=== PATIENT | female | born 1955 | race Caucasian/White ===

== ENCOUNTER 2018-11-25 07:17 | Day surgery (SDC) | payer OTHER ==
[2018-11-25] MEDS: TETRACAINE HCL 0.5% 4ML OPTH OPTH ONE ×2 (07:10→09:10)
--- OUTSIDE RECORDS SUMMARY | 2018-11-25 07:20 | XMS REPORT | Clinical Summary ---
:1955 Author Organization [facility] Address [address] [place] [address] Care Team Providers Name Role Phone Ana Maria Lucio MD Primary Care Provider Allergies No Known Allergies Medications Medication Sig Dispensed Refills Start Date End Date Status escitalopram (LEXAPRO) 10 TK 1 T PO D 2 10/05/2017 Active MG tablet RESTASIS 0.05 % ophthalmic INT 1 GTT IN 10 08/09/2017 Active emulsion OU BID TRAVATAN Z 0.004 % INT 1 GTT IN 1 08/25/2017 Active OU HS lamoTRIgine (LaMICtal) 200 TK 1 AND 1/2 T 2 10/04/2017 Active MG tablet PO QD multivitamin (THERAGRAN) Take 1 tablet 0 Active tablet by mouth daily. ARIPiprazole (ABILIFY) 5 Take 5 mg by 0 Active MG tablet mouth daily. aspirin (ECOTRIN) 81 MG Take 81 mg by 0 Active enteric coated tablet mouth daily. docusate sodium (COLACE) Take by mouth 0 Active 50 MG capsule daily. cholecalciferol, vitamin Take 5,000 0 Active D3, (VITAMIN D3) 1,000 Units by mouth unit tablet daily. hydroCHLOROthiazide Take 1 tablet 30 tablet 11 11/12/2017 Active (HYDRODIURIL) 25 MG tablet (25 mg total) by mouth daily. calcium carbonate (TUMS Take by mouth 0 Active FRESHERS ORAL) daily. b complex vitamins capsule Take 1 capsule 0 Active by mouth daily. SUMAtriptan (IMITREX) 25 Take 25 mg by 0 Active MG tablet mouth once as needed for migraine. May repeat in 2 hours if unresolved. Do not exceed 200 mg in 24 hours. losartan (COZAAR) 50 MG TK 1 T PO QD 3 07/23/2018 Active tablet FOR BP polyethylene glycol 3350 Take by mouth. 0 Active (MIRALAX ORAL) Active Problems Problem Noted Date Precordial chest pain 10/31/2017 Last Assessment & Plan: Atypical for angina; no exertional symptoms Essential hypertension, benign 10/31/2017 Last Assessment & Plan: BPs reasonable; on therapy Encounters Date Type Specialty Care Team Description 09/13/2018 Office Visit Orthopedic Surgery Niranjan Pringle II, MD left (Primary Dx) 08/02/2018 Hospital Encounter Radiology Niranjan Pringle II, MD 08/02/2018 Office Visit Orthopedic Surgery Niranjan Pringle Plantar fasciDARRELL chamberlain MD left (Primary Dx) 12/17/2017 Office Visit Cardiology Jose Ramon Wise MD hypertension, benign (Primary Dx) after 11/24/2017 Family History Medical History Relation Name Comments Diabetes Father Jenni [place]aec Onset in his 70's Hypertension Father Jenni Wallace Heart attack Mother Caren Wallace Heart disease Mother Caren Wallace Congestive heart failure Hypertension Mother Caren Wallace Relation Name Status Comments Father Jenin Wallace Mother Caren Wallace Social History Tobacco Use Types Packs/Day Years Used Date Never Smoker Smokeless Tobacco: Never Used Alcohol Use Drinks/Week oz/Week Comments No Sex Assigned at Date Recorded Not on file Job Start Date Occupation Industry Not on file Not on file Not on file Travel History Travel Start Travel End No recent travel history available. Last Filed Vital Signs Vital Sign Reading Time Taken Blood Pressure 142/68 12/17/2017 3:28 PM CDT Pulse 70 12/17/2017 3:28 PM CDT Temperature - - Respiratory Rate - - Oxygen Saturation - - Inhaled Oxygen Concentration - - Weight 117 kg (258 lb) 09/13/2018 1:06 PM CDT Height 160 cm (5' 3") 09/13/2018 1:06 PM CDT Body Mass Index 45.7 09/13/2018 1:06 PM CDT Plan of Treatment Health Maintenance Due Date Last Done Comments BREAST CANCER SCREENING 2004 COLONOSCOPY SCREENING 2004 SHINGLES VACCINES (#1) 2004 INFLUENZA VACCINE 11/21/2018 01/20/2015 Procedures Procedure Name Priority Date/Time Associated Diagnosis Comments FL INJECT TENDON Routine 08/02/2018 1:10 PM Plantar fasciitis, Results for this ORIGIN/INSERT CDT left procedure are in the results section. XR LOWER EXTREMITY Routine 05/02/2018 1:25 PM Results for this [facility] procedure are in the results section. after 11/24/2017 Results Injection tendon or ligament: foot, left (08/02/2018 1:10 PM CDT) Narrative Performed At Niranjan Pringle II, MD 08/02/20181:39 PM Injection tendon or ligament: foot, left Date/Time: 08/02/2018 1:39 PM Performed by: Niranjan Pringle II, MD Authorized by: Niranjan Pringle II, MD Consent: Consent obtained:Verbal Consent given by:Patient Risks discussed:Pain Alternatives discussed:Alternative treatment, no treatment and observation Pre-procedure details: Preparation: Patient was prepped and draped in usual sterile fashion Procedure details: Type of injection:Tendon origin Location:Foot Laterality:Left Left side: Needle size: 22 G Left foot medications administered: 1 mL triamcinolone acetonide 40 mg/mL Post-procedure details: Patient tolerance of procedure:Tolerated well, no immediate complications XR Lower Extremity External Study (05/02/2018 1:25 PM [facility]) Specimen Narrative Performed At This exam was not acquired at a [facility] facility and has not been [facility] interpreted by a [facility] Provider.The exam was imported into our imaging system for comparisons purposes. Performing Organization Address City/State/Zipcode Phone Number [facility] [address] [place] [address] after 11/24/2017 Insurance Payer Benefit Plan / Subscriber ID Effective Dates Phone Address Type Group MEDICARE MEDICARE PART A xxxxxxxxxx 2014-Present [place], [place] Medicare [place] B Advance Directives Patient has advance care planning documents on file. For more information, please contact:[facility] [id number] [id number]
--- OUTSIDE RECORDS SUMMARY | 2018-11-25 07:25 | XMS REPORT | Continuity of Care Document ---
:1955 Author Organization [facility] Care Team Providers Name Role Phone [facility] Unavailable Unavailable Problems Problem Status Onset Classification Date Comments Source Date Reported AMS Active 10/03/19 [place] [address] [facility] [place] Depression Resolved Problem 04/12/2017 [facility] Group HT - Resolved Problem 04/12/2017 Medical Hypertension Group SUICIDAL Resolved Problem 04/12/2017 Medical IDEATION Group Depression Resolved Problem 10/18/2012 [facility] HT - Resolved Problem 10/18/2012 [facility] Hypertension [facility] SUICIDAL Resolved Problem 10/18/2012 [facility] ALTERED MENTAL Active [facility] Medications Medication Details Route Status Patient Ordering Order Source Instructions Provider Date Lexapro 10 mg, 1 tab, PO No Ambriz [facility] Route: PO, Drug Longer Julien 2012 Medical form: TAB, Active Center Daily, Dosing Weight 92.3, kg, Start date: 10/14/12 18:00:00, Duration: 30 day, Stop date: 11/13/12 9:00:00 mirtazapine 15 30 mg, 2 tab, PO Active Ambriz 10/14/ [place] mg oral tablet PO, Bedtime, 30 Julien 2012 Medical tab, Center Substitution Allowed, TAB Lexapro 10 mg 10 mg, 1 tab, PO Active Ambriz 10/14/ [place] oral tablet PO, Daily, 30 Julien 2012 Medical tab, Center Substitution Allowed, TAB clonidine 0.3 0.3 mg, 1 tab, PO Active Ambriz 10/14/ [place] mg oral tablet PO, Q8H, 90 tab, Julien 2012 Medical Substitution Center Allowed, TAB amLODipine 5 mg 5 mg, 1 tab, PO, PO Active Ambriz 10/14/ [place] oral tablet Daily, 30 tab, Julien 2012 Medical Substitution Center Allowed, TAB Remeron 30 mg, 2 tab, PO No Ambriz [facility] Route: PO, Drug Longer Julien 2012 Medical form: TAB, Active Center Bedtime, Dosing Weight 92.3, kg, Start date: 10/11/12 21:00:00, Duration: 30 day, Stop date: 11/09/12 21:00:00 Seroquel 25 mg, Route: PO No Amadeo 10/10[facility] PO, Drug form: 2012 Medical TAB, BID, Dosing Active Center Weight 92.3, kg, PRN Agitation, Start date: 10/10/12 17:58:00, Duration: 30 day, Stop date: 11/09/12 17:57:00 potassium 40 mEq, 30 mL, PO No Leone 10/10[facility] chloride Route: PO, Drug 2012 Medical form: LIQ, ONCE, Active Center Dosing Weight 92.3, kg, Start date: 10/10/12 7:37:00, Duration: 1 doses or times, Stop date: 10/10/12 7:37:00, For K=3.5 - 3.9 mEq/LFor K=3.5 - 3.9 mEq/L Keppra 1000 mg 1,000 mg, 2 tab, PO No Sb 10/10[facility] oral tablet Route: PO, Drug 2012 Medical form: TAB, Q12H, Active Center Dosing Weight 92.3, kg, Start date: 10/10/12 6:00:00, Duration: 30 day, Stop date: 11/08/12 18:00:00 Remeron 15 mg, 1 tab, PO No Ambriz 10/10[facility] Route: PO, Drug Veronica Julien 2012 Medical form: TAB, Active Center Bedtime, Dosing Weight 92.3, kg, Start date: 10/09/12 21:20:00, Duration: 30 day, Stop date: 11/08/12 21:00:00 amLODipine 5 mg, 1 tab, PO No Sb 10/10[facility] Route: PO, Drug [facility] 2012 Medical form: TAB, Active Center Daily, Dosing Weight 92.3, kg, Start date: 10/09/12 20:33:00, Duration: 30 day, Stop date: 11/08/12 9:00:00 Versed 3 mg, 3 mL, IVP No Alex 10/09[facility] Route: IVP, Drug 2012 Medical form: INJ, ONCE, Active Center Dosing Weight 92.3, kg, Start date: 10/09/12 12:15:00, Stop date: 10/09/12 12:15:00 Lasix 20 mg, 2 mL, IVP No Rafiq [facility] Route: IVP, Drug 2012 Medical form: INJ, ONCE, Active Center Dosing Weight 92.3, kg, Start date: 10/09/12 11:20:00, Stop date: 10/09/12 11:20:00 Haldol 5 mg, 1 tab, PO No Rafiq [facility] Route: PO, Drug 2012 Medical form: TAB, TID, Active Center Dosing Weight 92.3, kg, PRN Anxiety, Start date: 10/09/12 10:56:00, Duration: 30 day, Stop date: 11/08/12 10:55:00 Versed 2 mg, 2 mL, IVP No Sb [facility] Route: IVP, Drug 2012 Medical form: INJ, PRN, Active Center Dosing Weight 92.3, kg, PRN Agitation, Start date: 10/09/12 9:38:00, Duration: 30 day, Stop date: 11/08/12 9:37:00 docusate sodium 100 mg, 10 mL, NG No Rian [facility] Route: NG, Drug 2012 Medical form: LIQ, PRN, Active Center Dosing Weight 92.3, kg, PRN as needed for constipation, Start date: 10/09/12 6:46:00, Duration: 30 day, Stop date: 11/08/12 6:45:00 senna 8.8 mg, 5 mL, NG No Rian [facility] Route: NG, Drug 2012 Medical Form: SYRP, Active Center Dosing Weight 92.3, kg, PRN, PRN as needed for constipation, Start date: 10/09/12 6:46:00, Duration: 30 day, Stop date: 11/08/12 6:45:00 lactulose\\water 200 gm, 300 ml, CO No German [facility] - enema Route: CO, Drug 2012 Medical Form: SYRP, Active Center Dosing Weight 92.3, kg, ONCE, Start date: 10/08/12 19:09:00, Duration: 1 doses or times, Stop date: 10/08/12 19:09:00, 300 mL lactulose + 700 mL [id number] mL lactulose + 700 mL water clonidine 0.3 mg, 1 tab, PO No Kittyoglu [facility] Route: PO, Drug 2012 Medical form: TAB, Q8H, Active Center Dosing Weight 92.3, kg, Start date: 10/08/12 16:00:00, Stop date: 11/07/12 8:00:00 Flagyl 500 mg, 10 mL, PO No Rafiq [facility] Route: PO, Drug 2012 Medical form: SUSP, Q8H, Active Center Dosing Weight 92.3, kg, Start date: 10/08/12 14:00:00, Duration: 30 day, Stop date: 11/07/12 6:00:00 Fleet Enema 133 ml, Route: CO No Rafiq [facility] CO, Drug Form: 2012 Medical RADHA, Dosing Active Center Weight 92.3, kg, ONCE, Start date: 10/08/12 13:30:00, Stop date: 10/08/12 13:30:00 potassium 30 mmol, 10 mL, IVPB No Vasu 10/08[facility] phosphate + Route: IVPB, 2012 Medical Sodium Chloride ONCE, Dosing Active Center 0.9% IV 250 mL Weight 92.3, kg, Start date: 10/08/12 7:16:00, Duration: 1 doses or times, Stop date: 10/08/12 7:16:00, For PO4=1.5 - 1.9 mg/dL; Administer when level=3 - 3.4 mEq/L in place of KClFor PO4=1.5 - 1.9 mg/dL; Administer when level=3 - 3.4 mEq/L in place of KCl hydrALAZINE 20 mg, 1 mL, IV No Vasu [facility] Route: IV, Drug 2012 Medical form: INJ, ONCE, Active Center Dosing Weight 92.3, kg, Start date: 10/08/12 0:22:00, Stop date: 10/08/12 0:22:00 hydrALAZINE 5 mg, 0.25 mL, IV No Vasu 10/08[facility] Elvira Route: IV, Drug 2012 Medical form: INJ, ONCE, Active Center Dosing Weight 92.3, kg, Start date: 10/07/12 22:14:00, Stop date: 10/07/12 22:14:00 MiraLax 17 gm, 1 pkt, NG No fidelalioglu 10/07[facility] Route: NG, Drug Longer 2012 Medical form: PWDR, Active Center Daily, Dosing Weight 92.3, kg, Priority: NOW, Start date: 10/07/12 10:24:00, Duration: 30 day, Stop date: 11/06/12 9:00:00 senna 8.8 mg, 5 mL, NG No fidelalioglu [facility] Route: NG, Drug Longer 2012 Medical Form: SYRP, Active Center Dosing Weight 92.3, kg, Daily, NOW, Start date: 10/07/12 10:24:00, Duration: 30 day, Stop date: 11/06/12 9:00:00 docusate sodium 100 mg, 10 mL, [facility] Route: NG, Drug Longer 2012 Medical form: LIQ, BID, Active Center Dosing Weight 92.3, kg, Priority: NOW, Start date: 10/07/12 10:24:00, Duration: 30 day, Stop date: 11/06/12 9:00:00 clonidine 0.1 mg, 1 tab, PO No Sb [facility] Route: PO, Drug 2012 Medical form: TAB, Q12H, Active Center Dosing Weight 92.3, kg, Priority: NOW, Start date: 10/07/12 10:20:00, Duration: 30 day, Stop date: 11/06/12 9:00:00 potassium 15 mmol, 5 mL, IV No Rian 10/07[facility] phosphate + Route: IV, ONCE, Longer 2012 Medical Sodium Chloride Start date: Active Center 0.9% IV 250 mL 10/07/12 4:30:00, Stop date: 10/07/12 4:30:00 potassium 20 mEq, Route: IVPB No Rian [facility] chloride IVPB, Q2H, Longer 2012 Medical Dosing Weight Active Center 92.3, kg, Total dose=60 mEq, Start date: 10/07/12 4:00:00, Duration: 3 doses or times, Stop date: 10/07/12 8:00:00, For K=3.0 - 3.4mEq/LFor K=3.0 - 3.4mEq/L potassium 40 mEq, 30 mL, NG No Rian [facility] chloride 20 Route: NG, Drug Longer 2012 Medical mEq/15 mL oral form: LIQ, ONCE, Active Center liquid Dosing Weight 92.3, kg, Start date: 10/07/12 3:26:00, Stop date: 10/07/12 3:26:00 sodium 15 mmol, Route: IVPB No Rian [facility] phosphate IVPB, ONCE, Longer 2012 Medical Dosing Weight Active Center 92.3, kg, Start date: 10/07/12 3:13:00, Duration: 1 doses or times, Stop date: 10/07/12 3:13:00, For PO4=2 - 2.4 mg/dLFor PO4=2 - 2.4 mg/dL clonidine 0.1 mg, 1 tab, PO No Radha [facility] Route: PO, Drug Longer 2012 Medical form: TAB, Q8H, Active Center Dosing Weight 92.3, kg, PRN Elevated BP, Start date: 10/06/12 12:35:00, Duration: 30 day, Stop date: 11/05/12 12:34:00 potassium 15 mmol, 5 mL, IVPB No Leone [facility] phosphate + Route: IVPB, Longer 2012 Medical Sodium Chloride ONCE, Dosing Active Center 0.9% IV 250 mL Weight 92.3, kg, Start date: 10/06/12 10:06:00, Duration: 1 doses or times, Stop date: 10/06/12 10:06:00, For PO4=2 - 2.4 mg/dL; Administer when K level=3.5 - 3.9 mEq/L in place of KClFor PO4=2 - 2.4 mg/dL; Administer when K level=3.5 - 3.9 mEq/L in place of KCl Cardene 40 mg 40 mg, 200 mL, IV No Amadeo [facility] in NS 200 ml IV Rate: Titrate, Longer 2012 Medical 40 mg Dosing Weight Active Center 92.3, kg, Route: IV, Total Volume: 200 mL, Duration: 30 day, Stop date: 11/05/12 9:49:00, Replace Every: 24 hr Ativan 2 mg, Route: IVP No Sb 10/06[facility] El[facility]ira IVP, ONCE, Longer 2012 Medical Dosing Weight Active Center 92.3, kg, PRN Agitation, Start date: 10/06/12 7:10:00 Keppra + Sodium 1,500 mg, Route: IVPB No Sb 10/06[facility] Chloride 0.9% IVPB, Q12H, Longer 2012 Medical IV 100 mL Dosing Weight Active Center 92.3, kg, Start date: 10/06/12 6:25:00, Duration: 30 day, Stop date: 11/04/12 21:00:00 Ativan 2 mg, 1 mL, IV No Sb 10/06[facility] El[facility] Route: IV, Drug 2012 Medical form: INJ, Active Center Q15Min, Dosing Weight 92.3, kg, PRN Anxiety, Start date: 10/05/12 22:45:00, Duration: 2 doses or times, Stop date: Limited # of times, seziure magnesium 2 gm, 50 mL, IVPB No Sb 10/06[facility] El[facility] sulfate Route: IVPB, 2012 Medical Drug form: INJ, Active Center ONCE, Dosing Weight 92.3, kg, Start date: 10/05/12 22:30:00, Duration: 1 doses or times, Stop date: 10/05/12 22:30:00, For Mg=1.8 - 2 mg/dLFor Mg=1.8 - 2 mg/dL potassium 30 mmol, 10 mL, IVPB No Sb 10/06[facility] phosphate + Route: IVPB, 2012 Medical Sodium Chloride ONCE, Dosing Active Center 0.9% IV 250 mL Weight 92.3, kg, Start date: 10/05/12 22:30:00, Duration: 1 doses or times, Stop date: 10/05/12 22:30:00, For PO4=1.5 - 1.9 mg/dL; Administer when level=3 - 3.4 mEq/L in place of KClFor PO4=1.5 - 1.9 mg/dL; Administer when level=3 - 3.4 mEq/L in place of KCl Keppra + Sodium 1,000 mg, Route: IVPB No Rafiq [facility] Chloride 0.9% IVPB, Q12H, Longer 2012 Medical IV 100 mL Dosing Weight Active Center 92.3, kg, Start date: 10/05/12 21:00:00, Duration: 30 day, Stop date: 11/04/12 9:00:00 Ativan 0.5 mg, 0.25 mL, IV No Leone [facility] Route: IV, Drug 2012 Medical form: INJ, Q24H, Active Center Dosing Weight 92.3, kg, Start date: 10/05/12 21:00:00, Duration: 30 day, Stop date: 11/03/12 21:00:00 Ativan 1 mg, 0.5 mL, IVP No Sb [facility] Route: IVP, Drug 2012 Medical form: INJ, ONCE, Active Center Dosing Weight 92.3, kg, PRN Anxiety, Start date: 10/05/12 19:43:00 fentanyl 100 microgram, 2 IV No Sb [facility] mL, Route: IV, Longer 2012 Medical Drug form: INJ, Active Center ONCE, Dosing Weight 92.3, kg, Start date: 10/05/12 19:43:00, Stop date: 10/05/12 19:43:00 NS (Bolus) IV 500 mL, Rate: IV No Kutahyalioglu [facility] 500 mL 500 ml/hr, 2012 Medical Infuse over: 1 Active Center hr, Route: IV, Dosing Weight 92.3 kg, Total Volume: 500, Priority: STAT, Start date: 10/05/12 18:15:00, Duration: 1 doses or times, Stop date: 10/05/12 19:14:00, Bolus DoseBolus Dose Ativan 1 mg, Route: IVP No Rafiq [facility] IVP, ONCE, Longer 2012 Medical Dosing Weight Active Center 92.3, kg, PRN Anxiety, Start date: 10/05/12 17:00:00 Ativan 1 mg, 0.5 mL, IVP No Alex [facility] Route: IVP, Drug 2012 Medical form: INJ, ONCE, Active Center Dosing Weight 92.3, kg, PRN Seizure, Start date: 10/05/12 14:41:00 Keppra + Sodium 500 mg, Route: IVPB No Rafiq 10/05[facility] [place] Chloride 0.9% IVPB, ONCE, Longer 2012 Medical IV 100 mL Dosing Weight Active Center 92.3, kg, Start date: 10/05/12 14:23:00, Stop date: 10/05/12 14:23:00 potassium 30 mmol, 10 mL, IVPB No Rafiq 10/05[facility] [place] phosphate + Route: IVPB, Longer 2012 Medical Sodium Chloride ONCE, Dosing Active Center 0.9% IV 250 mL Weight 92.3, kg, Start date: 10/05/12 12:35:00, Stop date: 10/05/12 12:35:00 Ativan 1 mg, 0.5 mL, IV No Watson [facility] Route: IV, Drug 2012 Medical form: INJ, Q4H, Active Center Dosing Weight 92.3, kg, Start date: 10/05/12 12:00:00, Stop date: 11/04/12 8:00:00 Keppra + Sodium 750 mg, Route: IVPB No Rafiq [place] Chloride 0.9% IVPB, Q12H, Longer 2012 Medical IV 100 mL Dosing Weight Active Center 92.3, kg, Start date: 10/05/12 9:00:00, Duration: 30 day, Stop date: 11/03/12 21:00:00 Ativan 2 mg, Route: IVP Danna Porter 10/05[facility] El[facility] IVP, ONCE, Longer 2012 Medical Dosing Weight Active Center 92.3, kg, Start date: 10/05/12 6:06:00, Stop date: 10/05/12 6:06:00 potassium 15 mmol, 5 mL, IVPB Danna Porter 10/05[facility] Elvira phosphate + Route: IVPB, Longer 2012 Medical Sodium Chloride ONCE, Dosing Active Center 0.9% IV 250 mL Weight 92.3, kg, Start date: 10/05/12 2:49:00, Duration: 1 doses or times, Stop date: 10/05/12 2:49:00, For PO4=2 - 2.4 mg/dL; Administer when K level=3.5 - 3.9 mEq/L in place of KClFor PO4=2 - 2.4 mg/dL; Administer when K level=3.5 - 3.9 mEq/L in place of KCl potassium 18 mmol, 6 mL, IVPB No Radha 10/05[facility] phosphate + Route: IVPB, Longer 2012 Medical Sodium Chloride ONCE, Dosing Active Center 0.9% IV 250 mL Weight 92.3, kg, Priority: STAT, Start date: 10/05/12 1:43:00, Stop date: 10/05/12 1:43:00 Dextrose 5% in 1,000 mL, Rate: IVPB No Sb 10/05[facility] Water IV 1,000 44.55 ml/hr, Longer 2012 Medical mL + Infuse over: 24 Active Center acetylcysteine hr, Route: IVPB, 13,845 mg Dosing Weight 92.3 kg, Total Volume: 1,069.23, Start date: 10/05/12 1:30:00, Duration: 2 day, Stop date: 10/07/12 1:29:00 Keppra + Sodium 500 mg, Route: IV No German 10/05[facility] Chloride 0.9% IV, ONCE, Dosing Longer 2012 Medical IV 100 mL Weight 92.3, kg, Active Center Start date: 10/05/12 0:03:00, Stop date: 10/05/12 0:03:00 Ativan 2 mg, 1 mL, IVP No [facility] 10/05[facility] Route: IVP, Drug Longer 2012 Medical form: INJ, ONCE, Active Center Dosing Weight 92.3, kg, Start date: 10/04/12 23:45:00, Stop date: 10/04/12 23:45:00 lactulose 20 gm, 30 ml, NG No [facility] 10/04[facility] Route: NG, Drug Longer 2012 Medical Form: SYRP, Active Center Dosing Weight 92.3, kg, TID, Start date: 10/04/12 13:00:00, Duration: 30 day, Stop date: 11/03/12 9:00:00 Dextrose 5% in 1,000 mL, Rate: IVPB No Sb 10/04[facility] Water IV 1,000 44.57 ml/hr, Longer 2012 Medical mL + Infuse over: 24 Active Center acetylcysteine hr, Route: IVPB, 13,920 mg Dosing Weight 92.3 kg, Total Volume: 1,069.6, Start date: 10/04/12 9:45:00, Duration: 3 day, Stop date: 10/07/12 9:44:00 Dextrose 5% in 1,000 mL, Rate: IVPB No Bretttahyalioglu 10/04/ [facility] Water IV 1,000 65.38 ml/hr, Longer 2012 Medical mL + Infuse over: 16 Active Center acetylcysteine hr, Route: IVPB, 9,230 mg Dosing Weight 92.3 kg, Total Volume: 1,046.15, Start date: 10/04/12 9:30:00, Duration: 1 doses or times, Stop date: 10/05/12 1:29:00 D5W 1/2NS 1000 1,000 mL, Rate: IV No Kutahyalioglu 10/04/ [facility] mL 100 ml/hr, Longer 2012 Medical Infuse over: 10 Active Center hr, Route: IV, Dosing Weight 92.3 kg, Total Volume: 1,000, Start date: 10/04/12 9:04:00, Duration: 30 day, Stop date: 11/03/12 9:03:00 D5W 1/2NS 1,000 1,000 mL, Rate: IV No German 10/04/ [facility] mL 125 ml/hr, Longer 2012 Medical Infuse over: 8 Active Center hr, Route: IV, Dosing Weight 92.3 kg, Total Volume: 1,000, Start date: 10/04/12 8:59:00, Duration: 30 day, Stop date: 11/03/12 8:58:00 acetylcysteine 50 mg/kg, Route: IVPB No Kutahyalioglu 10/04/ [facility] 20% intravenous IVPB, Longer 2012 Medical solution Continuous, Active Center Dosing Weight 92.3, kg, Start date: 10/04/12 8:30:00, Duration: 30 day, Stop date: 11/03/12 8:29:00 Neutra-Phos 2 pkt, Route: PO No Leone 10/04/ [facility] PO, Drug Form: Longer 2012 Medical PDR/REC, Dosing Active Center Weight 92.3, kg, ONCE, Start date: 10/04/12 6:08:00, Stop date: 10/04/12 6:08:00 vancomycin + 1.25 gm, Route: IVPB No Radha 10/04[facility] Sodium Chloride IVPB, ABXQ8H, Longer 2012 Medical 0.9% IV 250 mL Dosing Weight Active Center 58.3, kg, Start date: 10/03/12 23:00:00, Duration: 30 day, Stop date: 11/02/12 15:00:00 Keppra + Sodium 500 mg, Route: IVPB No German 10/04[facility] Chloride 0.9% IVPB, Q12H, Longer 2012 Medical IV 100 mL Dosing Weight Active Center 58.3, kg, Start date: 10/03/12 21:00:00, Duration: 30 day, Stop date: 11/02/12 9:00:00 heparin 5000 5,000 unit, 1 SUB-Q No Osuagwu 10/03[facility] units/mL mL, Route: Longer 2012 Medical injectable SUB-Q, Drug Active Center solution form: INJ, Q8H, Dosing Weight 58.3, kg, Start date: 10/03/12 16:00:00, Duration: 30 day, Stop date: 11/02/12 8:00:00 PlasmaLyte A 1,000 mL, Rate: IV No Kutahyalioglu [facility] PH-7.4 1,000 mL 150 ml/hr, Longer 2012 Medical Infuse over: 6.7 Active Center hr, Route: IV, Dosing Weight 92.3 kg, Total Volume: 1,000, Priority: STAT, Start date: 10/03/12 12:55:00, Duration: 30 day, Stop date: 11/02/12 12:54:00 Haldol 2 mg, 0.4 mL, IV No Alex 10/03[facility] Route: IV, Drug Longer 2012 Medical form: INJ, Q4H, Active Center Dosing Weight 92.3, kg, PRN Agitation, Start date: 10/03/12 12:35:00, Duration: 30 day, Stop date: 11/02/12 12:34:00 Dextrose 5% in 1,000 mL, Rate: IV No Sb 10/03[facility] Water IV 1,000 65.38 ml/hr, Longer 2012 Medical mL + Infuse over: 16 Active Center acetylcysteine hr, Route: IV, 9,230 mg Dosing Weight 92.3 kg, Total Volume: 1,046.15, Start date: 10/03/12 10:00:00, Duration: 16 hr, Stop date: 10/04/12 1:59:00 Dextrose 5% in 1,000 mL, Rate: IV No Sb [facility] Water IV 1,000 64.31 ml/hr, Longer 2012 Medical mL + Acetadote Infuse over: 16 Active Center 5,800 mg hr, Route: IV, Dosing Weight 58.3 kg, Total Volume: 1,029, Start date: 10/03/12 9:30:00, Duration: 16 hr, Stop date: 10/04/12 1:29:00 Normosol-R PH 1,000 mL, Rate: IV No Chaudhari [facility] 7.4 1,000 mL 150 ml/hr, Longer 2012 Medical Infuse over: 6.7 Active Center hr, Route: IV, Dosing Weight 92.3 kg, Total Volume: 1,000, Priority: STAT, Start date: 10/03/12 9:29:00, Duration: 30 day, Stop date: 11/02/12 9:28:00 Normosol-R PH 1,000 mL, Rate: IV No Chaudhari [facility] 7.4 1000 mL 100 ml/hr, Longer 2012 Medical Infuse over: 10 Active Center hr, Route: IV, Dosing Weight 92.3 kg, Total Volume: 1,000, Start date: 10/03/12 9:28:00, Duration: 30 day, Stop date: 11/02/12 9:27:00 Acetadote 9,230 mg, Route: IV No Sb [facility] IV, ONCE, Dosing Longer 2012 Medical Weight 58.3, kg, Active Center Start date: 10/03/12 8:18:00, Stop date: 10/03/12 8:18:00 insulin aspart 10 unit, 0.1 mL, SUB-Q No Sb [facility] Route: SUB-Q, Longer 2012 Medical Drug form: SOLN, Active Center Sliding Scale, Dosing Weight 58.3, kg, PRN Blood Glucose Results, Start date: 10/03/12 8:16:00, Duration: 30 day, Stop date: 11/02/12 8:15:00 glucagon 1 mg, Route: IM, IM No Sb Elvira Drug form: Longer 2012 Medical PDR/INJ, PRN, Active Center Dosing Weight 58.3, kg, PRN Blood Glucose Results, Start date: 10/03/12 8:16:00, Duration: 30 day, Stop date: 11/02/12 8:15:00 Dextrose 50% 25 gm, 50 mL, IVP No Sb [facility] Syringe Route: IVP, Drug Longer 2012 Medical Form: INJ, Active Center Dosing Weight 58.3, kg, PRN, PRN Blood Glucose Results, Start date: 10/03/12 8:16:00, Duration: 30 day, Stop date: 11/02/12 8:15:00 PlasmaLyte A 1,000 mL, Rate: IV No Sb [facility] PH-7.4 1,000 mL 150 ml/hr, Longer 2012 Medical Infuse over: 6.7 Active Center hr, Route: IV, Dosing Weight 58.3 kg, Total Volume: 1,000, Start date: 10/03/12 8:02:00, Stop date: 11/02/12 8:01:00 Keppra + Sodium 1,750 mg, Route: IV No Sb [facility] Chloride 0.9% IV, ONCE, Dosing Longer 2012 Medical IV 100 mL Weight 58.3, kg, Active Center Loading Dose, Start date: 10/03/12 7:56:00, Duration: 0, Stop date: 10/03/12 7:56:00, Pediatric DosingPediatric Dosing Ativan 2 mg, 1 mL, IV No Sb Elvira Route: IV, Drug Longer 2012 Medical form: INJ, ONCE, Active Center Dosing Weight 58.3, kg, Start date: 10/03/12 7:52:00, Stop date: 10/03/12 7:52:00 Acetadote 5,800 mg, Route: IV No Sb El[facility] IV, ONCE, Dosing Longer 2012 Medical Weight 58.3, kg, Active Center Start date: 10/03/12 7:49:00, Stop date: 10/03/12 7:49:00 vancomycin 1 gm, Route: IVPB No Jaden 10/03[facility] IVPB, Drug form: Longer 2012 Medical INJ, ABXQ8H, Active Center Dosing Weight 58.3, kg, Start date: 10/03/12 5:00:00, Duration: 30 day, Stop date: 11/01/12 21:00:00 Versed 50 mg in 50 mg, 50 mL, IV No Maryluu Elvira NS 50 ml Rate: Titrate as Longer 2012 Medical (titrate) IV 50 directed, Dosing Active Center mg Weight 58.3, kg, Route: IV, Total Volume: 50 ml, Duration: 30 day, Stop date: 11/02/12 4:56:00, Replace Every: 24 hr Lactated 1,000 mL, Rate: IV No Amadeo 10/03[facility] El[facility]ira Ringers (Bolus) 2,000 ml/hr, Longer 2012 Medical IV 1,000 mL Infuse over: 0.5 Active Center hr, Route: IV, Dosing Weight 58.3 kg, Total Volume: 1,000, Start date: 10/03/12 4:15:00, Duration: 1 doses or times, Stop date: 10/03/12 4:44:00 Lactated 2,000 mL, Rate: IV No Amadeo 10/03[facility] Ringers (Bolus) 2,000 ml/hr, Longer 2012 Medical IV 2,000 mL Infuse over: 1 Active Center hr, Route: IV, Dosing Weight 58.3 kg, Total Volume: 2,000, Start date: 10/03/12 3:03:00, Duration: 1 doses or times, Stop date: 10/03/12 4:02:00 normal saline 2,000 mL, Rate: IV No Rian 10/03[facility] 0.9% IV 2,000 2,000 ml/hr, Longer 2012 Medical mL Infuse over: 1 Active Center hr, Route: IV, Dosing Weight 58.3 kg, Total Volume: 2,000, Start date: 10/03/12 2:55:00, Duration: 1 doses or times, Stop date: 10/03/12 3:54:00 Protonix 40 mg, Route: IVP No Sb [facility] IVP, Drug form: Longer 2012 Medical INJ, Daily, Active Center Dosing Weight 58.3, kg, Start date: 10/03/12 0:14:00, Duration: 30 day, Stop date: 11/01/12 9:00:00 potassium 2 pkt, Route: PO No Jojoalioglu [facility] phosphate-sodiu PO, Drug Form: 2012 Medical m phosphate 250 PDR/REC, Q4H, Active Center mg-278 mg-164 Start date: mg oral powder 10/03/12 0:00:00, Duration: 2 doses or times, Stop date: 10/03/12 4:00:00 pantoprazole 40 mg, 1 tab, NG [facility] Route: NG, Drug Longer 2012 Medical form: ECTAB, Active Center Before Dinner, Dosing Weight 58.3, kg, Start date: 10/03/12 0:00:00, Duration: 30 day, Stop date: 11/01/12 16:30:00 NS (Bolus) IV 2,000 mL, Rate: IV No garthu [facility] 2,000 mL 2,000 ml/hr, Longer 2012 Medical Infuse over: 1 Active Center hr, Route: IV, Dosing Weight 58.3 kg, Total Volume: 2,000, Priority: STAT, Start date: 10/02/12 22:33:00, Duration: 1 doses or times, Stop date: 10/02/12 23:32:00, Bolus DoseBolus Dose cefepime 1 gm, Route: IVPB No [place] [facility] IVPB, Drug form: Longer 2012 Medical INJ, [id number], Active Center Dosing Weight 58.3, kg, (CrCl >/=50 ml/min), Start date: 10/02/12 22:00:00, Duration: 30 day, Stop date: 11/01/12 14:00:00 potassium 20 mEq, 100 mL, IVPB No Jojoalioglu [facility] chloride Route: IVPB, Longer 2012 Medical Drug form: INJ, Active Center Q2H, Dosing Weight 58.3, kg, Total dose=60 mEq, Start date: 10/02/12 22:00:00, Duration: 3 doses or times, Stop date: 10/03/12 2:00:00, For K=3.0 - 3.4mEq/LFor K=3.0 - 3.4mEq/L magnesium 2 gm, 50 mL, IVPB No Jojoalioglu [facility] sulfate Route: IVPB, 2012 Medical Drug form: INJ, Active Center Q2H, Dosing Weight 58.3, kg, Start date: 10/02/12 22:00:00, Duration: 3 doses or times, Stop date: 10/03/12 2:00:00, For Mg=1.0 - 1.4 mg/dLFor Mg=1.0 - 1.4 mg/dL Dextrose 50% 12.5 gm, 25 mL, IVP No Amadeo Elvira Syringe Route: IVP, Drug 2012 Medical Form: INJ, Active Center Dosing Weight 58.3, kg, PRN, PRN Blood Glucose Results, Start date: 10/02/12 21:10:00, Duration: 30 day, Stop date: 11/01/12 21:09:00 Insulin regular 100 mL, Rate: IVPB No Sb [facility] 100 unit + Start Insulin 2012 Medical Sodium Chloride Drip Per ICU Active Center 0.9% (titrate) Protocol, Dosing 100 mL Weight 58.3, kg, Route: IVPB, Total Volume: 100, Duration: 30 day, Stop date: 11/01/12 21:09:00, Replace Every: 24 hr, Initial Insulin Drip Rate (units/hour)=(Fa sting Blood Glucose-60)X0.03 "mu...Initial Insulin Drip Rate (units/hour)=(Fa sting Blood Glucose-60)X0.03 "multiplier". Flagyl 500 mg, 1 tab, PO No Alex Elvira Route: PO, Drug 2012 Medical form: TAB, Active Center [id number], Dosing Weight 58.3, kg, Start date: 10/02/12 21:05:00, Duration: 30 day, Stop date: 11/01/12 13:05:00 vancomycin + 1.5 gm, Route: IVPB No Jojoalioglu 10/03/ Elvira Sodium Chloride IVPB, ONCE, Longer 2012 Medical 0.9% IV 250 mL Dosing Weight Active Center 58.3, kg, Start date: 10/02/12 21:04:00, Stop date: 10/02/12 21:04:00 NS 1,000 mL 1,000 mL, Rate: IV No Amadeo 10/03/ Elvira 200 ml/hr, Longer 2012 Medical Infuse over: 5 Active Center hr, Route: IV, Dosing Weight 58.3 kg, Total Volume: 1,000, Start date: 10/02/12 20:56:00, Duration: 30 day, Stop date: 11/01/12 20:55:00 sodium 30 mmol, Route: IVPB No Maryluu 10/03/ Elvira phosphate IVPB, ONCE, Longer 2012 Medical Dosing Weight Active Center 58.3, kg, Start date: 10/02/12 20:55:00, Duration: 1 doses or times, Stop date: 10/02/12 20:55:00, For PO4=1.5 - 1.9 mg/dLFor PO4=1.5 - 1.9 mg/dL NS (Bolus) IV 1,000 mL, Rate: IV No Maryluu 10/03/ Elvira 1,000 mL 1,000 ml/hr, Longer 2012 Medical Infuse over: 1 Active Center hr, Route: IV, Dosing Weight 58.3 kg, Total Volume: 1,000, Priority: STAT, Start date: 10/02/12 20:24:00, Duration: 1 doses or times, Stop date: 10/02/12 21:23:00, Bolus DoseBolus Dose insulin aspart 3 unit, 0.03 mL, SUB-Q No Kutahyalioglu 10/03/ Elvira Route: SUB-Q, Longer 2012 Medical Drug form: SOLN, Active Center Sliding Scale, Dosing Weight 58.3, kg, PRN Blood Glucose Results, Start date: 10/02/12 20:17:00, Duration: 30 day, Stop date: 11/01/12 20:16:00 Dextrose 50% 12.5 gm, 25 mL, IVP No Bretttahyalioglu 10/03/ Elvira Syringe Route: IVP, Drug Longer 2012 Medical Form: INJ, Active Center Dosing Weight 58.3, kg, PRN, PRN Blood Glucose Results, Start date: 10/02/12 20:17:00, Duration: 30 day, Stop date: 11/01/12 20:16:00 glucagon 1 mg, Route: IM, IM No Kittyoglu [facility] Drug form: Longer 2012 Medical PDR/INJ, PRN, Active Center Dosing Weight 58.3, kg, PRN Blood Glucose Results, Start date: 10/02/12 20:17:00, Duration: 30 day, Stop date: 11/01/12 20:16:00 Versed 1 mg, 1 mL, IVP No Amadeo [facility] Route: IVP, Drug Longer 2012 Medical form: INJ, PRN, Active Center Dosing Weight 58.3, kg, PRN Other -See Comment, Start date: 10/02/12 19:47:00, Duration: 24 hr, Stop date: 10/03/12 20:03:00 norepinephrine 242 mL, Rate: IV No German 10/03[facility] Elvira 8 mg + Sodium Use as direced, Longer 2012 Medical Chloride 0.9% Dosing Weight Active Center (titrate) 242 58.3, kg, Route: mL IV, Total Volume: 250 mL, Stop date: 11/01/12 19:45:00, Replace Every: 24 hr NS (Bolus) IV 1,000 mL, Rate: IV Danna Childs 10/03[facility] Elvira 1000 mL 1,000 ml/hr, Longer 2012 Medical Infuse over: 1 Active Center hr, Route: IV, Dosing Weight 58.3 kg, Total Volume: 1,000, Priority: STAT, Start date: 10/02/12 19:46:00, Duration: 1 doses or times, Stop date: 10/02/12 20:45:00, Bolus DoseBolus Dose etomidate 20 mg, Route: IV No Amadeo 10/03[facility] Elvira IV, ONCE, Dosing Longer 2012 Medical Weight 58.3, kg, Active Center Start date: 10/02/12 19:45:00, Stop date: 10/02/12 19:45:00 FENTanyl - one 100 microgram, IVP No Amadeo 10/03[facility] time ICU bolus Route: IVP, Drug Longer 2012 Medical dose form: INJ, ONCE, Active Center Dosing Weight 58.3, kg, Start date: 10/02/12 19:44:00, Stop date: 10/02/12 19:44:00 Versed 2 mg, Route: IVP No Amadeo 10/03[facility] IVP, ONCE, Longer 2012 Medical Dosing Weight Active Center 58.3, kg, PRN Other -See Comment, Start date: 10/02/12 19:44:00, Stop date: 11/01/12 19:43:00 acetylcysteine 2,915 mg, 14.58 IVPB No Amadeo 10/03[facility] 20% intravenous mL, Route: IVPB, Longer 2012 Medical solution + Drug form: SOLN, Active Center Dextrose 5% in ONCE, Dosing Water IV 500 mL Weight 58.3, kg, Start date: 10/02/12 19:31:00, Stop date: 10/02/12 19:31:00 Versed 50 mg in 50 mg, 50 mL, IV No Amadeo 10/03[facility] NS 50 ml Rate: Titrate as Longer 2012 Medical (titrate) IV 50 directed, Dosing Active Center mg Weight 170, kg, Route: IV, Total Volume: 50 ml, Duration: 30 day, Stop date: 11/01/12 19:05:00, Replace Every: 24 hr FENTanyl 1000 1,000 microgram, IV No Sb [facility] mcg in 20 mL 20 mL, Rate: Longer 2012 Medical (titrate) IV Titrate as Active Center 1,000 microgram directed, Dosing Weight 170, kg, Route: IV, Total Volume: 20 ml, Duration: 30 day, Stop date: 11/01/12 19:05:00, Replace Every: 24 hr naloxone 0.4 mg, Route: IVP No Carter 10/02[facility] IVP, Drug form: Longer 2012 Medical INJ, ONCE, kg, Active Center PRN Narcotic Reversal, Start date: 10/02/12 18:41:00, Stop date: 11/01/12 18:40:00 Allergies, Adverse Reactions, Alerts No Known Medication Allergies Immunizations No Data Provided for This Section Results Order Name Results Value Reference Date Interpretation Comments Source Range BEDSIDE Gluc POC 111 70 - 99 10/14 HI <sup>2</sup>I [facility] GLUCOSE Lifsc /2012 nterpretive Medical TESTING Data: Center Upper Reportable Limit: 200 mg/dL. BEDSIDE Comment1 Notify 10/14 NA [facility] GLUCOSE RN/MD /2013 Medical TESTING Center BEDSIDE Gluc POC 109 70 - 99 10/14 HI <sup>3</sup>I [facility] GLUCOSE Lifsc nterpretive Medical TESTING Data: Center Upper Reportable Limit: 200 mg/dL. BEDSIDE Comment1 Notify 10/14 NA [facility] GLUCOSE RN/ /2013 Medical TESTING Center BEDSIDE Comment1 Notify 10/14 NA Elvira GLUCOSE RN/MD /2013 Medical TESTING Center BEDSIDE Gluc POC 108 70 - 99 10/14 HI <sup>4</sup>I [facility] GLUCOSE Lifscn nterpretive Medical TESTING Data: Center Upper Reportable Limit: 200 mg/dL. CHEMISTRY Globulin 3.5 2.0 - 4.0 10/11 Normal [facility] CHEMISTRY Bili Indirect 0.2 0.0 - 1.0 10/11 Normal [facility] CHEMISTRY A/G Ratio 0.6 0.7 - 1.6 10/11 LOW [facility] CHEMISTRY AST 22 0 - 37 10/11 Normal [facility] CHEMISTRY Total Protein 5.6 6.4 - 8.4 10/11 LOW [facility] CHEMISTRY Alk Phos 76 39 - 136 10/11 Normal [facility] CHEMISTRY Albumin Lvl 2.1 3.5 - 5.0 10/11 LOW [facility] CHEMISTRY Bili Total 0.3 0.2 - 1.3 10/11 Normal [facility] CHEMISTRY Bili Direct 0.1 0.0 - 0.3 10/11 Normal [facility] CHEMISTRY ALT 100 0 - 65 10/11 [facility] CHEMISTRY Phosphorus 3.3 2.5 - 4.5 10/11 Normal [facility] CHEMISTRY Lactic Acid 0.8 0.5 - 2.2 10/11 Normal [facility] CHEMISTRY Ca Ion mgdL 5.04 4.65 - 10/11 Normal [place] 5.20 [facility] CHEMISTRY Ca Norm 1.31 1.16 - 10/11 [facility] [place] 1.30 Medical Center CHEMISTRY Ca Ion 1.26 1.16 - 10/11 Normal [place] 1.30 Medical [facility] CHEMISTRY Ca Norm mgdL 5.24 4.65 - 10/11 HI [facility] 5.20 /2012 [facility] CHEMISTRY AGAP 16.2 10.0 - 10/11 Normal [facility] 20.0 [facility] CHEMISTRY eGFR 101 10/11 NA <sup>5</sup>R esult Medical Comment: The Center eGFR is calculated using the CKD-EPI formula. In most young, healthy individuals the eGFR will be >90 mL/min/1.73m2 . The eGFR declines with age. An eGFR of 60-89 may be normal in some populations, particularly the elderly, for whom the CKD-EPI formula has not been extensively validated. Use of the eGFR is not recommended in the following populations:& lt;br/>
I ndividuals with unstable creatinine concentration s, including patients and those with serious co-morbid conditions.<b r/>
Patie nts with extremes in muscle mass or diet.

The data above are obtained from the National Kidney Disease Education Program (NKDEP) which additionally recommends that when the eGFR is used in patients with extremes of body mass index for purposes of drug dosing, the eGFR should be multiplied by the estimated BMI. CHEMISTRY Chloride Lvl 103 95 - 109 10/11 Normal [facility] CHEMISTRY Potassium Lvl 4.2 3.5 - 5.1 10/11 Normal [facility] CHEMISTRY Calcium Lvl 8.5 8.5 - 10.5 10/11 Normal [facility] CHEMISTRY CO2 27 24 - 32 10/11 Normal [facility] CHEMISTRY BUN 11 7 - 22 10/11 Normal [facility] CHEMISTRY Glucose Lvl 93 70 - 99 10/11 Normal <sup>8</sup>I nterpretive Medical Data: Adult Center reference range values reflect the clinical guidelines
of the [place] [employer]. CHEMISTRY Creatinine 0.6 0.5 - 1.4 10/11 Normal [facility] [place] [facility] CHEMISTRY Sodium Lvl 142 135 - 145 10/11 Normal [facility] CHEMISTRY Magnesium Lvl 2.2 1.8 - 2.4 10/11 Normal [facility] HEMATOLOGY MPV 8.2 7.4 - 10.4 10/11 Normal [facility] HEMATOLOGY RDW 14.5 11.5 - 10/11 Normal [place] 14.5 /2012 [facility] HEMATOLOGY Platelet 336 133 - 450 10/11 Normal [facility] HEMATOLOGY MCH 32.4 27.0 - 10/11 HI [place] 31.0 /2012 [facility] HEMATOLOGY MCHC 33.7 32.0 - 10/11 Normal [place] 36.0 /2012 [facility] HEMATOLOGY RBC 3.11 4.20 - 10/11 LOW [place] 5.40 /2012 [facility] HEMATOLOGY Hgb 10.1 12.0 - 10/11 LOW [place] 16.0 /2012 [facility] HEMATOLOGY Hct 30.0 36.0 - 10/11 LOW [place] 48.0 /2012 [facility] HEMATOLOGY WBC 5.5 3.7 - 10.4 10/11 Normal [facility] HEMATOLOGY MCV 96.2 81.0 - 10/11 Normal [facility] 99.0 /2012 [facility] HEMATOLOGY PT 14.2 12.0 - 10/11 Normal [facility] 14.7 /2012 [facility] HEMATOLOGY PTT 29.5 22.9 - 10/11 Normal <sup>25</sup> [facility] 35.8 /2012 Interpretive Medical Data: Heparin Center Therapeutic Range: 57 - 92 Seconds HEMATOLOGY INR 1.08 0.85 - 10/11 Normal <sup>22</sup> [facility] 1.17 /2012 Interpretive Medical Data: Center RECOMMENDED RANGES FOR PROTIME INR:
2.0-3.0 for most medical and surgical thromboemboli c states.
2.5-3.5 for artificial heart valves and recurrent embolism.<br/ >
INR SHOULD BE USED ONLY FOR PATIENTS ON STABLE ANTICOAGULANT THERAPY. HEMATOLOGY Monocytes # 0.6 0.0 - 0.8 10/11 Normal [facility] HEMATOLOGY Lymphocytes # 1.4 1.0 - 5.5 10/11 Normal [facility] HEMATOLOGY Eosinophils # 0.2 0.0 - 0.5 10/11 Normal [facility] HEMATOLOGY Eosinophils 3.1 0.0 - 4.0 10/11 Normal [facility] HEMATOLOGY Monocytes 10.5 2.0 - 12.0 10/11 Normal [facility] HEMATOLOGY Segs 61.0 45.0 - 10/11 Normal [place] 75.0 /2012 [facility] HEMATOLOGY Lymphocytes 24.8 20.0 - 10/11 Normal [place] 40.0 /2012 [facility] HEMATOLOGY Segs-Bands # 3.3 1.5 - 8.1 10/11 Normal [facility] HEMATOLOGY Basophils 0.6 0.0 - 1.0 10/11 Normal [facility] CHEMISTRY eGFR 101 10/10 NA <sup>6</sup>R esult Medical Comment: The Center eGFR is calculated using the CKD-EPI formula. In most young, healthy individuals the eGFR will be >90 mL/min/1.73m2 . The eGFR declines with age. An eGFR of 60-89 may be normal in some populations, particularly the elderly, for whom the CKD-EPI formula has not been extensively validated. Use of the eGFR is not recommended in the following populations:& lt;br/>
I ndividuals with unstable creatinine concentration s, including patients and those with serious co-morbid conditions.<b r/>
Patie nts with extremes in muscle mass or diet.

The data above are obtained from the National Kidney Disease Education Program (NKDEP) which additionally recommends that when the eGFR is used in patients with extremes of body mass index for purposes of drug dosing, the eGFR should be multiplied by the estimated BMI. CHEMISTRY Creatinine 0.6 0.5 - 1.4 10/10 Normal [facility] CHEMISTRY BUN 14 7 - 22 10/10 Normal [facility] CHEMISTRY Sodium Lvl 143 135 - 145 10/10 Normal [facility] CHEMISTRY Potassium Lvl 3.4 3.5 - 5.1 10/10 [facility] CHEMISTRY CO2 32 24 - 32 10/10 Normal [facility] CHEMISTRY Chloride Lvl 101 95 - 109 10/10 Normal [facility] CHEMISTRY Glucose Lvl 105 70 - 99 10/10 HI <sup>9</sup>I nterpretive Medical Data: Adult Center reference range values reflect the clinical guidelines
of the [place] [employer]. CHEMISTRY Calcium Lvl 8.2 8.5 - 10.5 10/10 LOW [facility] CHEMISTRY AGAP 13.4 10.0 - 10/10 Normal [facility] . [facility] CHEMISTRY Phosphorus 3.3 2.5 - 4.5 10/10 Normal [facility] CHEMISTRY Magnesium Lvl 2.2 1.8 - 2.4 10/10 Normal [facility] CHEMISTRY Ca Ion 1.15 1.16 - 10/10 LOW [place] 1. [facility] CHEMISTRY Ca Norm 1.18 1.16 - 10/10 Normal [place] 1. [facility] CHEMISTRY Ca Norm mgdL 4.72 4.65 - 10/10 Normal [place] 5. [facility] CHEMISTRY Ca Ion mgdL 4.60 4.65 - 10/10 LOW [place] 5. [facility] HEMATOLOGY Eosinophils # 0.1 0.0 - 0.5 10/10 Normal [facility] HEMATOLOGY Lymphocytes # 1.5 1.0 - 5.5 10/10 Normal [facility] HEMATOLOGY Monocytes # 0.9 0.0 - 0.8 10/10 HI [facility] HEMATOLOGY Basophils 0.5 0.0 - 1.0 10/10 Normal [facility] HEMATOLOGY Eosinophils 2.1 0.0 - 4.0 10/10 Normal [facility] HEMATOLOGY Monocytes 12.6 2.0 - 12.0 10/10 [facility] HEMATOLOGY Lymphocytes 21.4 20.0 - 10/10 Normal [place] 40.0 [facility] HEMATOLOGY Segs 63.4 45.0 - 10/10 Normal [place] 75.0 /2012 [facility] HEMATOLOGY Segs-Bands # 4.4 1.5 - 8.1 10/10 Normal [facility] HEMATOLOGY RBC 3.14 4.20 - 10/10 LOW [place] 5.40 [facility] HEMATOLOGY WBC 6.9 3.7 - 10.4 10/10 Normal [facility] HEMATOLOGY RDW 14.0 11.5 - 10/10 Normal [place] 14.5 [facility] HEMATOLOGY Platelet 308 133 - 450 10/10 Normal [facility] HEMATOLOGY MPV 8.4 7.4 - 10.4 10/10 Normal [facility] HEMATOLOGY Hgb 10.0 12.0 - 10/10 LOW [place] 16.0 [facility] HEMATOLOGY Hct 30.1 36.0 - 10/10 LOW [place] 48.0 /2012 [facility] HEMATOLOGY MCV 95.9 81.0 - 10/10 Normal [place] 99.0 /2012 [facility] HEMATOLOGY MCH 31.9 27.0 - 10/10 HI [place] 31.0 /2012 [facility] HEMATOLOGY MCHC 33.3 32.0 - 10/10 Normal [place] 36.0 /2012 [facility] HEMATOLOGY PT 14.5 12.0 - 10/10 Normal [facility] 14.7 /2012 [facility] HEMATOLOGY PTT 35.4 22.9 - 10/10 Normal <sup>26</sup> [facility] 35.8 /2013 Interpretive Medical Data: Heparin Center Therapeutic Range: 57 - 92 Seconds HEMATOLOGY INR 1.11 0.85 - 10/10 Normal <sup>23</sup> [facility] 1.17 /2012 Interpretive Medical Data: Center RECOMMENDED RANGES FOR PROTIME INR:
2.0-3.0 for most medical and surgical thromboemboli c states.
2.5-3.5 for artificial heart valves and recurrent embolism.<br/ >
INR SHOULD BE USED ONLY FOR PATIENTS ON STABLE ANTICOAGULANT THERAPY. CHEMISTRY POC A BE 13 -2-2 - 2 10/10 HI [facility] CHEMISTRY POC A O2 Sat 98.0 95.0 - 10/10 Normal [facility] 100.0 [facility] CHEMISTRY POC A Mode 2 L/NC 10/10 [facility] CHEMISTRY POC A pH 7.53 7.35 - 10/10 [facility] 7.45 [facility] CHEMISTRY POC A Temp 37.0 10/10 NA [facility] CHEMISTRY POC A PCO2 44 35 - 45 10/10 Normal [facility] CHEMISTRY POC A PO2 91 80 - 100 10/10 Normal [facility] CHEMISTRY POC A HCO3 37 22 - 26 10/10 [facility] CHEMISTRY POC A Source ART 10/10 NA [facility] CHEMISTRY POC A PEEP 5.0 0.0 - 40.0 10/09 Normal [facility] CHEMISTRY POC A %FIO2 40.0 18.0 - 10/09 Normal [facility] 100.0 [facility] CHEMISTRY POC A O2 Sat 99.0 95.0 - 10/09 Normal [facility] 100.0 [facility] CHEMISTRY POC A Mode T TUBE 10/09 [facility] CHEMISTRY POC A BE 13 -2-2 - 2 10/09 [facility] CHEMISTRY POC A PCO2 47 35 - 45 10/09 [facility] CHEMISTRY POC A PO2 134 80 - 100 10/09 [facility] CHEMISTRY POC A HCO3 38 22 - 26 10/09 [facility] CHEMISTRY POC A Source ART 10/09 NA [facility] CHEMISTRY POC A pH 7.51 7.35 - 10/09 HI [facility] 7.45 [facility] CHEMISTRY POC A Temp 37.0 10/09 NA [facility] CHEMISTRY Ca Norm 1.17 1.16 - 10/09 Normal [facility] 1.30 [facility] CHEMISTRY Ca Norm mgdL 4.68 4.65 - 10/09 Normal [facility] 5. [facility] CHEMISTRY Ca Ion mgdL 4.44 4.65 - 10/09 LOW [place] 5. [facility] CHEMISTRY Ca Ion 1.11 1.16 - 10/09 LOW [facility] 1. [facility] CHEMISTRY Phosphorus 3.5 2.5 - 4.5 10/09 Normal [facility] CHEMISTRY AGAP 13.5 10.0 - 10/09 Normal [facility] 20.0 [facility] CHEMISTRY eGFR 101 10/09 NA <sup>7</sup>R esult Medical Comment: The Center eGFR is calculated using the CKD-EPI formula. In most young, healthy individuals the eGFR will be >90 mL/min/1.73m2 . The eGFR declines with age. An eGFR of 60-89 may be normal in some populations, particularly the elderly, for whom the CKD-EPI formula has not been extensively validated. Use of the eGFR is not recommended in the following populations:& lt;br/>
I ndividuals with unstable creatinine concentration s, including patients and those with serious co-morbid conditions.<b r/>
Patie nts with extremes in muscle mass or diet.

The data above are obtained from the National Kidney Disease Education Program (NKDEP) which additionally recommends that when the eGFR is used in patients with extremes of body mass index for purposes of drug dosing, the eGFR should be multiplied by the estimated BMI. CHEMISTRY Creatinine 0.6 0.5 - 1.4 10/09 Normal [facility] [place] Lvl /2012 [facility] CHEMISTRY Potassium Lvl 3.5 3.5 - 5.1 10/09 Normal [facility] CHEMISTRY BUN 11 7 - 22 10/09 Normal [facility] CHEMISTRY Glucose Lvl 117 70 - 99 10/09 HI <sup>10</sup> Interpretive Medical Data: Adult Center reference range values reflect the clinical guidelines
of the [place] [employer]. CHEMISTRY CO2 32 24 - 32 10/09 Normal [facility] CHEMISTRY Calcium Lvl 8.2 8.5 - 10.5 10/09 LOW [facility] CHEMISTRY Chloride Lvl 101 95 - 109 10/09 Normal [facility] CHEMISTRY Sodium Lvl 143 135 - 145 10/09 Normal [facility] CHEMISTRY Magnesium Lvl 2.1 1.8 - 2.4 10/09 Normal [facility] HEMATOLOGY MPV 8.3 7.4 - 10.4 10/09 Normal [facility] HEMATOLOGY Platelet 212 133 - 450 10/09 Normal [facility] HEMATOLOGY RDW 14.1 11.5 - 10/09 Normal [place] 14.5 [facility] HEMATOLOGY MCHC 34.1 32.0 - 10/09 Normal [place] 36.0 [facility] HEMATOLOGY MCH 32.5 27.0 - 10/09 [facility] [place] 31.0 [facility] HEMATOLOGY MCV 95.3 81.0 - 10/09 Normal [place] 99.0 /2012 [facility] HEMATOLOGY Hct 29.5 36.0 - 10/09 [facility] [place] 48.0 Medical Center HEMATOLOGY Hgb 10.1 12.0 - 10/09 LOW [place] 16.0 /2012 Medical [facility] HEMATOLOGY WBC 7.2 3.7 - 10.4 10/09 Normal [facility] HEMATOLOGY RBC 3.09 4.20 - 10/09 LOW [place] 5.40 /2012 Medical [facility] HEMATOLOGY Eosinophils 2.1 0.0 - 4.0 10/09 Normal [facility] HEMATOLOGY Basophils 0.4 0.0 - 1.0 10/09 Normal [facility] HEMATOLOGY Eosinophils # 0.2 0.0 - 0.5 10/09 Normal [facility] HEMATOLOGY Monocytes # 0.9 0.0 - 0.8 10/09 [facility] HEMATOLOGY Segs-Bands # 5.3 1.5 - 8.1 10/09 Normal [facility] HEMATOLOGY Lymphocytes # 0.8 1.0 - 5.5 10/09 LOW [facility] HEMATOLOGY Monocytes 12.3 2.0 - 12.0 10/09 HI [facility] HEMATOLOGY Segs 73.5 45.0 - 10/09 Normal [place] 75.0 [facility] HEMATOLOGY Lymphocytes 11.7 20.0 - 10/09 LOW [place] 40.0 [facility] CHEMISTRY POC A VT 400 2 - 1200 10/09 Normal [facility] CHEMISTRY POC A %FIO2 40.0 18.0 - 10/09 Normal [place] 100.0 [facility] CHEMISTRY POC A HCO3 38 22 - 26 10/09 HI [facility] CHEMISTRY POC A PCO2 50 35 - 45 10/09 HI [facility] CHEMISTRY POC A pH 7.49 7.35 - 10/09 HI [place] 7.45 [facility] CHEMISTRY POC A PO2 115 80 - 100 10/09 HI [facility] CHEMISTRY POC A Temp 37.0 10/09 NA [facility] CHEMISTRY POC A O2 Sat 99.0 95.0 - 10/09 Normal [place] 100.0 [facility] CHEMISTRY POC A PEEP 5.0 0.0 - 40.0 10/09 Normal [facility] CHEMISTRY POC A BE 13 -2-2 - 2 10/09 HI [facility] CHEMISTRY POC A Mech 12 0 - 70 10/09 Normal [facility] CHEMISTRY POC A Mode PRVC/AC 10/09 NA [facility] CHEMISTRY POC A Source ART 10/09 NA [facility] CHEMISTRY Ammonia 42.0 <=45.0 10/08 Normal [facility] CHEMISTRY Lactic Acid 0.8 0.5 - 2.2 10/08 Normal [facility] CHEMISTRY A/G Ratio 0.8 0.7 - 1.6 10/08 Normal [facility] CHEMISTRY Globulin 2.6 2.0 - 4.0 10/08 Normal [facility] CHEMISTRY Bili Indirect 0.2 0.0 - 1.0 10/08 Normal [facility] CHEMISTRY Bili Direct 0.2 0.0 - 0.3 10/08 Normal [facility] CHEMISTRY Alk Phos 96 39 - 136 10/08 Normal [facility] CHEMISTRY Albumin Lvl 2.0 3.5 - 5.0 10/08 LOW [facility] CHEMISTRY Bili Total 0.4 0.2 - 1.3 10/08 Normal [facility] CHEMISTRY Total Protein 4.6 6.4 - 8.4 10/08 LOW [facility] CHEMISTRY AST 53 0 - 37 10/08 [facility] CHEMISTRY ALT 295 0 - 65 10/08 [facility] HEMATOLOGY PTT 38.7 22.9 - 10/08 HI <sup>27</sup> [place] 35.8 /2012 Interpretive Medical Data: [facility] Therapeutic Range: 57 - 92 Seconds HEMATOLOGY PT 14.9 12.0 - 10/08 HI [place] 14.7 /2012 [facility] HEMATOLOGY INR 1.15 0.85 - 10/08 Normal <sup>24</sup> [facility] 1. Interpretive Medical Data: Center RECOMMENDED RANGES FOR PROTIME INR:
2.0-3.0 for most medical and surgical thromboemboli c states.
2.5-3.5 for artificial heart valves and recurrent embolism.<br/ >
INR SHOULD BE USED ONLY FOR PATIENTS ON STABLE ANTICOAGULANT THERAPY. CHEMISTRY POC A Mech 12 0 - 70 10/08 Normal [facility] CHEMISTRY POC A VT 400 2 - 1200 10/08 Normal [facility] CHEMISTRY POC A PEEP 5.0 0.0 - 40.0 10/08 Normal [facility] CHEMISTRY POC A %FIO2 40.0 18.0 - 10/08 Normal [facility] 100.0 /2012 Medical Center CHEMISTRY AST 116 0 - 37 10/07 [facility] CHEMISTRY Total Protein 4.8 6.4 - 8.4 10/07 LOW [facility] CHEMISTRY Bili Total 0.4 0.2 - 1.3 10/07 Normal [facility] CHEMISTRY ALT 514 0 - 65 10/07 [facility] CHEMISTRY Bili Direct 0.2 0.0 - 0.3 10/07 Normal [facility] CHEMISTRY Alk Phos 121 39 - 136 10/07 Normal [facility] CHEMISTRY Albumin Lvl 2.1 3.5 - 5.0 10/07 LOW [facility] CHEMISTRY Bili Indirect 0.2 0.0 - 1.0 10/07 Normal [facility] CHEMISTRY A/G Ratio 0.8 0.7 - 1.6 10/07 Normal [facility] CHEMISTRY Globulin 2.7 2.0 - 4.0 10/07 Normal [facility] CHEMISTRY Lactic Acid 1.4 0.5 - 2.2 10/07 Normal [facility] CHEMISTRY Ammonia 33.0 <=45.0 10/07 Normal [facility] CHEMISTRY POC A VT 400 2 - 1200 10/07 Normal [facility] CHEMISTRY POC A Mech 6 0 - 70 10/07 Normal [facility] CHEMISTRY Vanco Tr TND 0700 10/06 NA [facility] CHEMISTRY Vanco Tr 15.0 10/06 NA <sup>18</sup> Interpretive Medical Data: Center Therapeutic Range:
Trough: 10 - 20 ug/mL
Peak: 20 - 40 ug/mL
Potential Toxicity: >80 ug/mL CHEMISTRY Ammonia 32.0 <=45.0 10/06 Normal [facility] CHEMISTRY Acetaminoph 6 10 - 20 10/06 LOW [facility] CHEMISTRY Total CK 187 12 - 191 10/05 Normal [facility] CHEMISTRY Vanco Tr TND 0630 10/05 NA [facility] CHEMISTRY Vanco Tr 15.1 10/05 NA <sup>19</sup> Interpretive Medical Data: Center Therapeutic Range:
Trough: 10 - 20 ug/mL
Peak: 20 - 40 ug/mL
Potential Toxicity: >80 ug/mL CHEMISTRY Prolactin Lvl 23.6 10/05 NA <sup>21</sup> Interpretive Medical Data: Male: Center 2.1-17.7 ng/mL

Female: Non- 2.8-29.2 ng/mL
9.7-208.5 ng/mL
Postmenopausa l 1.8-20.3 ng/mL CHEMISTRY Acetaminoph 7 10 - 20 10/05 LOW [facility] CHEMISTRY Lipase Lvl 40 73 - 393 10/04 LOW [facility] CHEMISTRY B/C Ratio 12 6 - 25 10/04 Normal [facility] CHEMISTRY Acetaminoph 8 10 - 20 10/04 LOW [facility] CHEMISTRY Vanco Tr TND 2100 10/04 NA [facility] CHEMISTRY Vanco Tr 14.4 10/04 NA <sup>20</sup> Interpretive Medical Data: Center Therapeutic Range:
Trough: 10 - 20 ug/mL
Peak: 20 - 40 ug/mL
Potential Toxicity: >80 ug/mL Microbiolog Culture: 10/03 y Medical [facility] CHEMISTRY POC V O2 Sat 76.0 40.0 - 10/03 [facility] [place] 70.0 Medical Center CHEMISTRY POC V BE -10 -2-2 - 2 10/03 LOW [facility] CHEMISTRY POC V HCO3 16 22 - 26 10/03 LOW [facility] CHEMISTRY POC V PO2 47 20 - 49 10/03 Normal [facility] CHEMISTRY POC V pH 7.28 7.28 - 10/03 Normal [facility] 7.42 [facility] CHEMISTRY POC V Na 135 135 - 145 10/03 Normal [facility] CHEMISTRY POC V K 3.5 3.5 - 5.1 10/03 Normal [facility] CHEMISTRY POC V PCO2 33 38 - 52 10/03 LOW [facility] CHEMISTRY POC V Ion Ca 1.15 1.16 - 10/03 LOW 1.30 /2012 [facility] CHEMISTRY POC V Hct 41.0 36.0 - 10/03 Normal 48.0 [facility] CHEMISTRY POC V Temp 37.0 10/03 NA [facility] CHEMISTRY POC V Source BOB 10/03 NA [facility] CHEMISTRY POC A LA 3.4 0.5 - 2.2 10/03 HI [facility] CHEMISTRY Total CK 440 12 - 191 10/03 [facility] [place] CHEMISTRY Troponin-I 0.12 0.00 - 10/03 Normal [facility] 0.40 /2012 [facility] CHEMISTRY Troponin-T <0.010 0.000 - 10/03 Normal [facility] 0.100 [facility] CHEMISTRY CK MB Index 2.9 0.0 - 2.5 10/03 HI [facility] CHEMISTRY CK MB 12.6 0.5 - 3.6 10/03 HI [facility] CHEMISTRY B/C Ratio 12 6 - 25 10/03 Normal [facility] BLOOD BANK ABO/Rh A POS 10/03 Unknown [facility] RESULTS [facility] BLOOD BANK Antibody Scrn Negative 10/03 Normal [facility] RESULTS (10/02/2012 22:00:00) [facility] Microbiolog Culture: 10/03 [facility] y Urine [facility] CHEMISTRY POC A LA 5.2 0.5 - 2.2 10/03 [place] [facility] CHEMISTRY POC A K 2.9 3.5 - 5.1 10/03 CRIT [facility] CHEMISTRY POC A Ca Ion 1.13 1.16 - 10/03 LOW [facility] 1.30 [facility] CHEMISTRY POC A Glu 142 70 - 99 10/03 HI [facility] CHEMISTRY POC A Na 136 135 - 145 10/03 Normal [facility] CHEMISTRY POC A Hct 44.0 36.0 - 10/03 Normal [facility] 48.0 [facility] CHEMISTRY U Phencyc Scr Negative Negative 10/03 NA [facility] *NA* /2012 [facility] (10/02/2012 20:08:43) [place] CHEMISTRY UDS Note See Note 17 10/03 Normal <sup>17</sup> [facility] (10/02/2012 20:08:43) Interpretive Medical Data: Drugs Center reported as positive have not been confirmed by a second
method and should be used for medical purposes only. To order
con firmation, contact laboratory.

n ote: Below are cut-off concentration s for all urine drugs of
abuse performed in the laboratory. Some drugs listed in the table
may not be included in this panel.
<b r/>Descriptio n Cut-off concentration
-------- ---
Amphe tamine 1000 ng/mL
Bar biturates 200 ng/mL
Jhon zodiazepines 300 ng/mL
Bobby maldonado metabolites 300 ng/mL
Opi ates 300 ng/mL
Phe ncyclidine 25 ng/mL
Pro poxyphene 300 ng/mL
Mar ijuana metabolites 50 ng/mL
Met hadone 300 ng/mL
Uri ne alcohol 20 mg/dL CHEMISTRY U Benzodia Positive Negative 10/03 ABN [facility] Scr *ABN* Medical (10/02/2012 20:08:43) Center CHEMISTRY U Emily [facility]10[facility]2012 20:08:43[facility] Center CHEMISTRY U Methadone Negative Negative 10/03 [facility] Scr *NA* Medical (10/02/2012 20:08:43) Center CHEMISTRY U Amph Scr Negative Negative 10/03 [facility] *NA* Medical (10/02/2012 20:08:43) Center CHEMISTRY U Propoxyph Negative Negative 10/03 [facility] Scr *NA* Medical (10/02/2012 20:08:43) Center CHEMISTRY U Cannab Scr Negative Negative 10/03 [facility] (10/02/2012 20:08:43) Center CHEMISTRY U Opiate Scr Positive Negative 10/03 ABN [facility] *ABN* Medical (10/02/2012 20:08:43) Center CHEMISTRY U Cocaine Scr Negative Negative 10/03 NA [place] *NA* Medical (10/02/2012 20:08:43) Center URINALYSIS UA Gran Cast 3 10/03 [facility] Medical Center URINALYSIS UA 0.1 - 1.0 10/03 [facility] URINALYSIS UA RBC 11 0 - 2 10/03 [facility] Medical Center URINALYSIS UA Bacteria Occasional /HPF None Seen 10/03 [facility] [place] *NA* Medical (10/02/2012 20:08:43) Center URINALYSIS UA Hyal Cast 3 0 - 2 10/03 [facility] Medical Center URINALYSIS UA Mucus Few /LPF None Seen 10/03 NA [facility]* Medical (10/02/2012 20:08:43) Center URINALYSIS UA Nitrite Negative Negative 10/03 Normal [facility] (10/02/2012 20:08:43) Medical Center URINALYSIS UA Sq Epi Moderate /LPF Few 10/03 [facility]* Medical (10/02/2012 20:08:43) Center URINALYSIS UA Leuk Est Trace Negative 10/03 [facility] (10/02/2012 20:08:43) Center URINALYSIS UA WBC 8 0 - 5 10/03 [facility] URINALYSIS UA Color Yellow Yellow 10/03 NA [facility] Medical (10/02/2012 20:08:43) Center URINALYSIS UA Protein 70 mg/dL Negative 10/03 [facility]* Medical (10/02/2012 20:08:43) Center URINALYSIS UA Turbidity Slight Clear 10/03 [facility]* Medical (10/02/2012 20:08:43) Center URINALYSIS UA Bili Negative Negative [facility]03 [facility]2012 20:08:43[facility] Center URINALYSIS UA Blood Negative Negative 10/03 Normal [facility] (10/02/2012 20:08:43) Medical Center URINALYSIS UA Glucose 300 mg/dL Negative 10/03 [facility]* Medical (10/02/2012 20:08:43) Center URINALYSIS UA Spec Grav 1.022 <=1.030 10/03 Normal Medical Center URINALYSIS UA pH 5.0 5.0 - 8.0 10/03 Normal [facility] URINALYSIS UA Ketones >=150 mg/dL Negative 10/03 [facility]* Medical (10/02/2012 20:08:43) Center CHEMISTRY Troponin-T 0.019 0.000 - 10/03 Normal [facility] 0.100 Medical Center CHEMISTRY Total CK 295 12 - 191 10/03 [facility] Medical Center CHEMISTRY Troponin-I 0.05 0.00 - 10/03 Normal [facility] 0.40 [facility] CHEMISTRY Ketone 0.10 <=0.27 10/03 Normal [facility] Quantitative [facility] CHEMISTRY CK MB 3.8 0.5 - 3.6 10/03 [place] [facility] CHEMISTRY CK MB Index 1.3 0.0 - 2.5 10/03 Normal [facility] CHEMISTRY CHD Risk 2.05 3.90 - 10/03 LOW [facility] 5.80 /2012 [facility] CHEMISTRY LDL 53 <=99 10/03 Normal <sup>15</sup> Interpretive Medical Data: Center Reference ranges are based on the clinical guidelines of the [employer] National Cholesterol Education Program (ATP III, 2001). CHEMISTRY HDL 74 >=61 10/03 Normal <sup>14</sup> Interpretive Medical Data: Center Reference ranges are based on the clinical guidelines of the NHLBI National Cholesterol Education Program (ATP III, 2001). CHEMISTRY Trig 123 <=149 10/03 Normal <sup>13</sup> Interpretive Medical Data: Center Reference ranges are based on the clinical guidelines of the NHLBI National Cholesterol Education Program (ATP III, 2001). CHEMISTRY Chol 152 <=199 10/03 Normal <sup>12</sup> Interpretive Medical Data: Center Reference ranges are based on the clinical guidelines of the NHLBI National Cholesterol Education Program (ATP III, 2001). CHEMISTRY BNP 30 <=100 10/03 Normal <sup>11</sup> Interpretive Medical Data: Center Elevated results are in line with increasing severity of
congesti ve heart failure. Minor elevations between 100 and 300
may be seen with Myocardial Ischemia, Sodium retaining drugs,
and compensated/t reated heart failure. CHEMISTRY Lipase Lvl 252 73 - 393 10/03 Normal [facility] CHEMISTRY TSH 2.310 0.360 - 10/03 Normal [facility] 3.740 [facility] IMMUNOLOGY Hep B Core Negative Negative 10/03 [facility] IgM *NA* Medical (10/02/2012 20:08:28) Center IMMUNOLOGY Hep C Ab Negative Negative 10/03 NA [place] *NA* /2012 Medical (10/02/2012 20:08:28) Center IMMUNOLOGY Hep A IgM Negative Negative 10/03 NA [facility] *NA* Medical (10/02/2012 20:08:28) Center IMMUNOLOGY Hep Bs Ag Negative Negative 10/03 NA [facility] *NA* Medical (10/02/2012 20:08:28) Center IMMUNOLOGY HIV 1/2 Ab Negative Negative 10/03 NA [facility] *NA* Medical (10/02/2012 20:08:28) Center CHEMISTRY Amylase Lvl 1195 25 - 115 10/03 [place] [facility] CHEMISTRY U Preg Negative Negative 10/03 Normal [facility] (10/02/2012 20:08:00) Medical Center BACTERIAL - MRSA by PCR Negative 1 10/02 Normal <sup>1</sup>I [facility] SEROLOGY (10/02/2012 18:41:55) nterpretive Medical Data: Center Interpretive Data: The [employer] LightCycler MRSA assay is a qualitative test for the direct detection of nasal colonization with methicillin-r esistant Staphylococcu s aureus (MRSA) to aid in the prevention and control of MRSA infections in healthcare settings. A positive result does not indicate an infection or require treatment. A negative result does not exclude colonization or infection.

The polymerase chain reaction (PCR) assay detects a proprietary sequence indicative of the integration of the SCCmec cassette into the Staphylococcu s aureus chromosome, indicating the presence of MRSA DNA. The assay utilizes FDA cleared IVD reagents. Performance characteristi cs have been verified by the [facility] within the [facility]. The [facility] Laboratory is authorized under the Clinical Laboratory Improvement Amendment of 1988 (CLIA-88) to perform high complexity testing. CHEMISTRY Hgb A1C 5.3 <=5.6 10/02 Normal <sup>16</sup> Interpretive Medical Data: The Center reference range is based on the clinical practice guidelines
of the [place] [employer] for diabetes screening;
levels of 5.7%-6.4% are indicative of pre-diabetes. CHEMISTRY B/C Ratio 9 6 - 25 10/02 Normal [facility] Microbiolog Culture: 10/02 [facility] y Blood /2012 Medical Center Microbiolog Culture: 10/02 [facility] y Resistant [facility] Center Screen Microbiolog Culture: 10/02 [facility] y [facility] CHEMISTRY POC A Glu 233 70 - 99 10/02 [place] [facility] CHEMISTRY POC A LA 7.0 0.5 - 2.2 10/02 [place] [facility] CHEMISTRY POC A Ca Ion 1.17 1.16 - 10/02 Normal [facility] 1. [facility] CHEMISTRY POC A Hct 48.0 36.0 - 10/02 Normal [place] 48.0 [facility] CHEMISTRY POC A Na 134 135 - 145 10/02 LOW [facility] CHEMISTRY POC A K 2.9 3.5 - 5.1 10/02 CRIT [facility] CHEMISTRY POC A Hct 44.0 36.0 - 10/02 Normal [facility] 48.0 [facility] CHEMISTRY POC A Na 130 135 - 145 10/02 LOW [facility] CHEMISTRY POC A K 3.0 3.5 - 5.1 10/02 CRIT [facility] CHEMISTRY POC A Glu 283 70 - 99 10/02 [place] [facility] CHEMISTRY POC A Ca Ion 1.14 1.16 - 10/02 LOW [facility] 1. [facility] Pathology Reports No Data Provided for This Section Diagnostic Reports No Data Provided for This Section Consultation Notes No Data Provided for This Section Discharge Summaries No Data Provided for This Section History and Physicals No Data Provided for This Section Vital Signs Vital Sign Value Date Comments Source Diastolic (mm Hg) 60 10/16/2012 [facility] Respitory Rate 18 10/16/2012 [facility] Heart Rate 56 10/16/2012 [facility] Temperature Oral (F) 98.4 F 10/16/2012 [facility] Systolic (mm Hg) 117 10/16/2012 [facility] Respitory Rate 18 10/16/2012 [facility] Diastolic (mm Hg) 62 10/16/2012 [facility] Systolic (mm Hg) 138 10/16/2012 [facility] Temperature Oral (F) 98.4 F 10/16/2012 [facility] Heart Rate 68 10/16/2012 [facility] Systolic (mm Hg) 144 10/16/2012 [facility] Diastolic (mm Hg) 65 10/16/2012 [facility] Respitory Rate 18 10/16/2012 [facility] Heart Rate 58 10/16/2012 [facility] Temperature Oral (F) 98.3 F 10/16/2012 [facility] Weight 92.3 10/03/2012 [facility] Height 167.64 cm 10/03/2012 [facility] Weight 58.3 10/03/2012 [facility] Weight 58.3 10/03/2012 [facility] Height 165.1 cm 10/03/2012 [facility] Height 167.64 cm 10/02/2012 [facility] Encounters Location Location Encounter Encounter Reason Attending ADM DC Status Source Details Type Number For Provider Date Date Visit [facility] Inpatient [id number] [place] 10/02 10/16 [place] [address] [facility] Outpatient [id number] JOSE GUADALUPE 04/09 [facility] [place] [facility] Ambulatory [id number] Jose Guadalupe 04/09 04/09 [facility] 0 [facility] [place] Procedures Procedure Code Date Perfomer Comments Source Gastric bypass [id number] Medical Group Gastric bypass [id number] [facility] Assessment and Plan No Data Provided for This Section Plan of Care No Data Provided for This Section Social History Social History Date Source No data available for this 04/09/2017 Medical Group section Family History No Data Provided for This Section Advance Directives No Data Provided for This Section Functional Status No Data Provided for This Section
--- OUTSIDE RECORDS SUMMARY | 2018-11-25 07:26 | XMS REPORT | Summary of Care ---
:1955 Author Organization [facility] [place] Address [address] [place] [address]- Encounter HQ Encntr_alias(FIN) [id number] Date(s): 04/09/17 - 04/09/17 [facility] [place] [address] [place] [address] [facility] [phone] Attending Physician: Jose Guadalupe Rico MD Vital Signs No data available for this section Problem List Condition Effective Dates Status Health Status Informant Depression(Confirmed) Resolved HT - Hypertension(Confirmed) Resolved SUICIDAL IDEATION(Confirmed) Resolved Allergies, Adverse Reactions, Alerts Substance Reaction Severity Status NKDA Active Medications No data available for this section Results No data available for this section Immunizations No data available for this section Procedures Procedure Date Related Diagnosis Body Site Gastric bypass Social History No data available for this section Assessment and Plan No data available for this section
--- OUTSIDE RECORDS SUMMARY | 2018-11-25 07:27 | XMS REPORT | CCD ---
:1955 Author Organization [facility] Care Team Providers Name Role Phone Tianna Machado Consulting Provider Jmiy Peter Consulting Provider Aleksandr Martinez III Referring Provider Unavailable Allergies, Adverse Reactions, Alerts Substance Reaction Status NKDA Active Problem List Condition Effective Dates Status Depression Resolved HT - Hypertension Resolved SUICIDAL IDEATION Resolved Medications Medication Instructions Start Date End Date Status insulin aspart 10 unit, 0.1 mL, Route: 10/03/2012 10/16/2012 Discontinued SUB-Q, Drug form: SOLN, Sliding Scale, Dosing Weight 58.3, kg, PRN Blood Glucose Results, Start date: 10/03/12 8:16:00, Duration: 30 day, Stop date: 11/02/12 8:15:00 insulin aspart 2 unit, 0.02 mL, Route: 10/03/2012 10/16/2012 Discontinued SUB-Q, Drug form: SOLN, Sliding Scale, Dosing Weight 58.3, kg, PRN Blood Glucose Results, Start date: 10/03/12 8:16:00, Duration: 30 day, Stop date: 11/02/12 8:15:00 insulin aspart 4 unit, 0.04 mL, Route: 10/03/2012 10/16/2012 Discontinued SUB-Q, Drug form: SOLN, Sliding Scale, Dosing Weight 58.3, kg, PRN Blood Glucose Results, Start date: 10/03/12 8:16:00, Duration: 30 day, Stop date: 11/02/12 8:15:00 insulin aspart 6 unit, 0.06 mL, Route: 10/03/2012 10/16/2012 Discontinued SUB-Q, Drug form: SOLN, Sliding Scale, Dosing Weight 58.3, kg, PRN Blood Glucose Results, Start date: 10/03/12 8:16:00, Duration: 30 day, Stop date: 11/02/12 8:15:00 insulin aspart 8 unit, 0.08 mL, Route: 10/03/2012 10/16/2012 Discontinued SUB-Q, Drug form: SOLN, Sliding Scale, Dosing Weight 58.3, kg, PRN Blood Glucose Results, Start date: 10/03/12 8:16:00, Duration: 30 day, Stop date: 11/02/12 8:15:00 glucagon 1 mg, Route: IM, Drug 10/03/2012 10/16/2012 Discontinued form: PDR/INJ, PRN, Dosing Weight 58.3, kg, PRN Blood Glucose Results, Start date: 10/03/12 8:16:00, Duration: 30 day, Stop date: 11/02/12 8:15:00 Dextrose 50% Syringe 25 gm, 50 mL, Route: 10/03/2012 10/16/2012 Discontinued IVP, Drug Form: INJ, Dosing Weight 58.3, kg, PRN, PRN Blood Glucose Results, Start date: 10/03/12 8:16:00, Duration: 30 day, Stop date: 11/02/12 8:15:00 Dextrose 50% Syringe 12.5 gm, 25 mL, Route: 10/03/2012 10/16/2012 Discontinued IVP, Drug Form: INJ, Dosing Weight 58.3, kg, PRN, PRN Blood Glucose Results, Start date: 10/03/12 8:16:00, Duration: 30 day, Stop date: 11/02/12 8:15:00 FENTanyl - one time ICU 100 microgram, Route: 10/02/2012 10/02/2012 Completed bolus dose IVP, Drug form: INJ, ONCE, Dosing Weight 58.3, kg, Start date: 10/02/12 19:44:00, Stop date: 10/02/12 19:44:00 Versed 2 mg, Route: IVP, ONCE, 10/02/2012 10/02/2012 Completed Dosing Weight 58.3, kg, PRN Other -See Comment, Start date: 10/02/12 19:44:00, Stop date: 11/01/12 19:43:00 acetylcysteine 20% 50 mg/kg, Route: IVPB, 10/04/2012 10/04/2012 Discontinued intravenous solution Continuous, Dosing Weight 92.3, kg, Start date: 10/04/12 8:30:00, Duration: 30 day, Stop date: 11/03/12 8:29:00 naloxone 0.4 mg, Route: IVP, Drug 10/02/2012 10/02/2012 Completed form: INJ, ONCE, kg, PRN Narcotic Reversal, Start date: 10/02/12 18:41:00, Stop date: 11/01/12 18:40:00 Flagyl 500 mg, 10 mL, Route: 10/08/2012 10/09/2012 Discontinued PO, Drug form: SUSP, Q8H, Dosing Weight 92.3, kg, Start date: 10/08/12 14:00:00, Duration: 30 day, Stop date: 11/07/12 6:00:00 docusate sodium 100 mg, 10 mL, Route: 10/09/2012 10/16/2012 Discontinued NG, Drug form: LIQ, PRN, Dosing Weight 92.3, kg, PRN as needed for constipation, Start date: 10/09/12 6:46:00, Duration: 30 day, Stop date: 11/08/12 6:45:00 normal saline 0.9% IV 2,000 mL, Rate: 2,000 10/03/2012 10/03/2012 Discontinued 2,000 mL ml/hr, Infuse over: 1 hr, Route: IV, Dosing Weight 58.3 kg, Total Volume: 2,000, Start date: 10/03/12 2:55:00, Duration: 1 doses or times, Stop date: 10/03/12 3:54:00 heparin 5000 units/mL 5,000 unit, 1 mL, Route: 10/03/2012 10/15/2012 Discontinued injectable solution SUB-Q, Drug form: INJ, Q8H, Dosing Weight 58.3, kg, Start date: 10/03/12 16:00:00, Duration: 30 day, Stop date: 11/02/12 8:00:00 senna 8.8 mg, 5 mL, Route: NG, 10/09/2012 10/16/2012 Discontinued Drug Form: SYRP, Dosing Weight 92.3, kg, PRN, PRN as needed for constipation, Start date: 10/09/12 6:46:00, Duration: 30 day, Stop date: 11/08/12 6:45:00 Acetadote 5,800 mg, Route: IV, 10/03/2012 10/03/2012 Deleted ONCE, Dosing Weight 58.3, kg, Start date: 10/03/12 7:49:00, Stop date: 10/03/12 7:49:00 vancomycin + Sodium 1.25 gm, Route: IVPB, 10/03/2012 10/06/2012 Discontinued Chloride 0.9% IV 250 mL [id number], Dosing Weight 58.3, kg, Start date: 10/03/12 23:00:00, Duration: 30 day, Stop date: 11/02/12 15:00:00 Dextrose 5% in Water IV 1,000 mL, Rate: 64.31 10/03/2012 10/03/2012 Canceled 1,000 mL + Acetadote 5,800 ml/hr, Infuse over: 16 mg hr, Route: IV, Dosing Weight 58.3 kg, Total Volume: 1,029, Start date: 10/03/12 9:30:00, Duration: 16 hr, Stop date: 10/04/12 1:29:00 clonidine 0.1 mg, 1 tab, Route: 10/06/2012 10/07/2012 Discontinued PO, Drug form: TAB, Q8H, Dosing Weight 92.3, kg, PRN Elevated BP, Start date: 10/06/12 12:35:00, Duration: 30 day, Stop date: 11/05/12 12:34:00 Ativan 2 mg, Route: IVP, ONCE, 10/05/2012 10/05/2012 Completed Dosing Weight 92.3, kg, Start date: 10/05/12 6:06:00, Stop date: 10/05/12 6:06:00 norepinephrine 8 mg + 242 mL, Rate: Use as 10/02/2012 10/04/2012 Discontinued Sodium Chloride 0.9% direced, Dosing Weight (titrate) 242 mL 58.3, kg, Route: IV, Total Volume: 250 mL, Stop date: 11/01/12 19:45:00, Replace Every: 24 hr potassium phosphate + 15 mmol, 5 mL, Route: 10/07/2012 10/07/2012 Completed Sodium Chloride 0.9% IV IV, ONCE, Start date: 250 mL 10/07/12 4:30:00, Stop date: 10/07/12 4:30:00 Keppra 1000 mg oral tablet 1,000 mg, 2 tab, Route: 10/10/2012 10/16/2012 Discontinued PO, Drug form: TAB, Q12H, Dosing Weight 92.3, kg, Start date: 10/10/12 6:00:00, Duration: 30 day, Stop date: 11/08/12 18:00:00 Lasix 20 mg, 2 mL, Route: IVP, 10/09/2012 10/09/2012 Completed Drug form: INJ, ONCE, Dosing Weight 92.3, kg, Start date: 10/09/12 11:20:00, Stop date: 10/09/12 11:20:00 Normosol-R PH 7.4 1,000 mL 1,000 mL, Rate: 150 10/03/2012 10/03/2012 Discontinued ml/hr, Infuse over: 6.7 hr, Route: IV, Dosing Weight 92.3 kg, Total Volume: 1,000, Priority: STAT, Start date: 10/03/12 9:29:00, Duration: 30 day, Stop date: 11/02/12 9:28:00 Versed 1 mg, 1 mL, Route: IVP, 10/02/2012 10/03/2012 Completed Drug form: INJ, PRN, Dosing Weight 58.3, kg, PRN Other -See Comment, Start date: 10/02/12 19:47:00, Duration: 24 hr, Stop date: 10/03/12 20:03:00 potassium phosphate-sodium 2 pkt, Route: PO, Drug 10/03/2012 10/03/2012 Completed phosphate 250 mg-278 Form: PDR/REC, Q4H, mg-164 mg oral powder Start date: 10/03/12 0:00:00, Duration: 2 doses or times, Stop date: 10/03/12 4:00:00 Keppra + Sodium Chloride 500 mg, Route: IVPB, 10/05/2012 10/05/2012 Completed 0.9% IV 100 mL ONCE, Dosing Weight 92.3, kg, Start date: 10/05/12 14:23:00, Stop date: 10/05/12 14:23:00 lactulose\\water - enema 200 gm, 300 ml, Route: SD, Drug Form: SYRP, Dosing Weight 92.3, kg, ONCE, Start date: 10/08/12 19:09:00, Duration: 1 doses or times , Stop date: 10/08/12 19:09:00, 300 mL lactulose + 700 mL water 10/08/2012 Completed 300 mL lactulose + 700 mL water Ativan 2 mg, Route: IVP, ONCE, 10/06/2012 10/06/2012 Completed Dosing Weight 92.3, kg, PRN Agitation, Start date: 10/06/12 7:10:00 NS (Bolus) IV 2,000 mL 2,000 mL, Rate: 2,000 ml/hr, Infuse over: 1 hr, Route: IV, Dosing Weight 58.3 kg, Total Volume: 2,000, Priority: STAT, Start date: 04/04 22:33:00, Duration: 1 doses or times, Stop date: 10/02/12 23:32:00, Bolus Dose 10/02/2012 10/02/2012 Completed Bolus Dose potassium phosphate + 15 mmol, 5 mL, Route: IVPB, ONCE, Dosing Weight 92.3, kg , Start date: 10/05/12 2:49:00, Duration: 1 doses or times, Stop date: 10/05/12 2:49:00, For PO4=2 - 2.4 mg/dL; Administer when K level=3.5 - 3.9 mEq/L in place of KCl 10/05/2012 10/05/2012 Completed Sodium Chloride 0.9% IV For PO4=2 - 2.4 mg/dL; Administer when K level=3.5 - 3.9 mEq/L in place of KCl 250 mL NS (Bolus) IV 1,000 mL 1,000 mL, Rate: 1,000 ml/hr, Infuse over: 1 hr, Route: IV, Dosing Weight 58.3 kg, Total Volume: 1,000, Priority: STAT, Start date: 04/04 20:24:00, Duration: 1 doses or times, Stop date: 10/02/12 21:23:00, Bolus Dose 10/02/2012 10/02/2012 Completed Bolus Dose NS (Bolus) IV 1000 mL 1,000 mL, Rate: 1,000 ml/hr, Infuse over: 1 hr, Route: IV, Dosing Weight 58.3 kg, Total Volume: 1,000, Priority: STAT, Start date: 04/04 19:46:00, Duration: 1 doses or times, Stop date: 10/02/12 20:45:00, Bolus Dose 10/02/2012 10/02/2012 Completed Bolus Dose Dextrose 5% in Water IV 1,000 mL, Rate: 65.38 10/04/2012 10/04/2012 Completed 1,000 mL + acetylcysteine ml/hr, Infuse over: 16 9,230 mg hr, Route: IVPB, Dosing Weight 92.3 kg, Total Volume: 1,046.15, Start date: 10/04/12 9:30:00, Duration: 1 doses or times, Stop date: 10/05/12 1:29:00 potassium chloride 20 40 mEq, 30 mL, Route: 10/07/2012 10/07/2012 Completed mEq/15 mL oral liquid NG, Drug form: LIQ, ONCE, Dosing Weight 92.3, kg, Start date: 10/07/12 3:26:00, Stop date: 10/07/12 3:26:00 hydrALAZINE 5 mg, 0.25 mL, Route: 10/07/2012 10/07/2012 Completed IV, Drug form: INJ, ONCE, Dosing Weight 92.3, kg, Start date: 10/07/12 22:14:00, Stop date: 10/07/12 22:14:00 PlasmaLyte A PH-7.4 1,000 1,000 mL, Rate: 150 10/03/2012 10/04/2012 Discontinued mL ml/hr, Infuse over: 6.7 hr, Route: IV, Dosing Weight 92.3 kg, Total Volume: 1,000, Priority: STAT, Start date: 10/03/12 12:55:00, Duration: 30 day, Stop date: 11/02/12 12:54:00 potassium phosphate + 30 mmol, 10 mL, Route: 10/05/2012 10/05/2012 Completed Sodium Chloride 0.9% IV IVPB, ONCE, Dosing 250 mL Weight 92.3, kg, Start date: 10/05/12 12:35:00, Stop date: 10/05/12 12:35:00 Dextrose 5% in Water IV 1,000 mL, Rate: 44.55 10/05/2012 10/04/2012 Canceled 1,000 mL + acetylcysteine ml/hr, Infuse over: 24 13,845 mg hr, Route: IVPB, Dosing Weight 92.3 kg, Total Volume: 1,069.23, Start date: 10/05/12 1:30:00, Duration: 2 day, Stop date: 10/07/12 1:29:00 Seroquel 25 mg, Route: PO, Drug 10/10/2012 10/10/2012 Discontinued form: TAB, BID, Dosing Weight 92.3, kg, PRN Agitation, Start date: 10/10/12 17:58:00, Duration: 30 day, Stop date: 11/09/12 17:57:00 potassium chloride 40 mEq, 30 mL, Route: PO, Drug form: LIQ, ONCE, Dosing Weight 92.3, kg, Start date: 10/10/12 7:37:00, Duration: 1 doses or times, Stop date: 10/10/12 7:37:00, For K=3.5 - 3.9 mEq/L 10/10/2012 10/10/2012 Completed For K=3.5 - 3.9 mEq/L Lactated Ringers (Bolus) 1,000 mL, Rate: 2,000 10/03/2012 10/03/2012 Completed IV 1,000 mL ml/hr, Infuse over: 0.5 hr, Route: IV, Dosing Weight 58.3 kg, Total Volume: 1,000, Start date: 10/03/12 4:15:00, Duration: 1 doses or times, Stop date: 10/03/12 4:44:00 hydrALAZINE 20 mg, 1 mL, Route: IV, 10/08/2012 10/08/2012 Completed Drug form: INJ, ONCE, Dosing Weight 92.3, kg, Start date: 10/08/12 0:22:00, Stop date: 10/08/12 0:22:00 Remeron 30 mg, 2 tab, Route: PO, 10/11/2012 10/16/2012 Discontinued Drug form: TAB, Bedtime, Dosing Weight 92.3, kg, Start date: 10/11/12 21:00:00, Duration: 30 day, Stop date: 11/09/12 21:00:00 Lexapro 10 mg, 1 tab, Route: PO, 10/14/2012 10/16/2012 Discontinued Drug form: TAB, Daily, Dosing Weight 92.3, kg, Start date: 10/14/12 18:00:00, Duration: 30 day, Stop date: 11/13/12 9:00:00 Dextrose 5% in Water IV 1,000 mL, Rate: 44.57 10/04/2012 10/07/2012 Completed 1,000 mL + acetylcysteine ml/hr, Infuse over: 24 13,920 mg hr, Route: IVPB, Dosing Weight 92.3 kg, Total Volume: 1,069.6, Start date: 10/04/12 9:45:00, Duration: 3 day, Stop date: 10/07/12 9:44:00 Keppra + Sodium Chloride 1,500 mg, Route: IVPB, 10/06/2012 10/09/2012 Discontinued 0.9% IV 100 mL Q12H, Dosing Weight 92.3, kg, Start date: 10/06/12 6:25:00, Duration: 30 day, Stop date: 11/04/12 21:00:00 Versed 50 mg in NS 50 ml 50 mg, 50 mL, Rate: 10/02/2012 10/02/2012 Discontinued (titrate) IV 50 mg Titrate as directed, Dosing Weight 170, kg, Route: IV, Total Volume: 50 ml, Duration: 30 day, Stop date: 11/01/12 19:05:00, Replace Every: 24 hr FENTanyl 1000 mcg in 20 mL 1,000 microgram, 20 mL, 10/02/2012 10/09/2012 Discontinued (titrate) IV 1,000 Rate: Titrate as microgram directed, Dosing Weight 170, kg, Route: IV, Total Volume: 20 ml, Duration: 30 day, Stop date: 11/01/12 19:05:00, Replace Every: 24 hr potassium phosphate + 30 mmol, 10 mL, Route: IVPB, ONCE, Dosing Weight 92.3, kg, Start date: 10/08/12 7:16:00, Duration: 1 doses or times, Stop date: 7:16:00, For PO4=1.5 - 1.9 mg/dL; Administer when level=3 - 3.4 mEq/L in place of KCl 10/08/2012 10/08/2012 Completed Sodium Chloride 0.9% IV For PO4=1.5 - 1.9 mg/dL; Administer when level=3 - 3.4 mEq/L in place of KCl 250 mL Normosol-R PH 7.4 1000 mL 1,000 mL, Rate: 100 10/03/2012 10/03/2012 Discontinued ml/hr, Infuse over: 10 hr, Route: IV, Dosing Weight 92.3 kg, Total Volume: 1,000, Start date: 10/03/12 9:28:00, Duration: 30 day, Stop date: 11/02/12 9:27:00 MiraLax 17 gm, 1 pkt, Route: NG, 10/07/2012 10/09/2012 Discontinued Drug form: PWDR, Daily, Dosing Weight 92.3, kg, Priority: NOW, Start date: 10/07/12 10:24:00, Duration: 30 day, Stop date: 11/06/12 9:00:00 senna 8.8 mg, 5 mL, Route: NG, 10/07/2012 10/09/2012 Discontinued Drug Form: SYRP, Dosing Weight 92.3, kg, Daily, NOW, Start date: 10/07/12 10:24:00, Duration: 30 day, Stop date: 11/06/12 9:00:00 Flagyl 500 mg, 1 tab, Route: 10/02/2012 10/08/2012 Discontinued PO, Drug form: TAB, ABXQ8H, Dosing Weight 58.3, kg, Start date: 10/02/12 21:05:00, Duration: 30 day, Stop date: 11/01/12 13:05:00 NS (Bolus) IV 500 mL 500 mL, Rate: 500 ml/hr, Infuse over: 1 hr, Route: IV, Dosing Weight 92.3 kg, Total Volume: 500, Priority: STAT, Start date: 10/05/12 18:15:00, Duration: 1 doses or times, Stop date: 10/05/12 19:14:00, Bolus Dose 10/05/2012 10/05/2012 Completed Bolus Dose cefepime 1 gm, Route: IVPB, Drug 10/02/2012 10/09/2012 Discontinued form: INJ, ABXQ8H, Dosing Weight 58.3, kg, (CrCl >/=50 ml/min), Start date: 10/02/12 22:00:00, Duration: 30 day, Stop date: 11/01/12 14:00:00 Keppra + Sodium Chloride 500 mg, Route: IVPB, 10/03/2012 10/05/2012 Discontinued 0.9% IV 100 mL Q12H, Dosing Weight 58.3, kg, Start date: 10/03/12 21:00:00, Duration: 30 day, Stop date: 11/02/12 9:00:00 Keppra + Sodium Chloride 750 mg, Route: IVPB, 10/05/2012 10/05/2012 Discontinued 0.9% IV 100 mL Q12H, Dosing Weight 92.3, kg, Start date: 10/05/12 9:00:00, Duration: 30 day, Stop date: 11/03/12 21:00:00 docusate sodium 100 mg, 10 mL, Route: 10/07/2012 10/09/2012 Discontinued NG, Drug form: LIQ, BID, Dosing Weight 92.3, kg, Priority: NOW, Start date: 10/07/12 10:24:00, Duration: 30 day, Stop date: 11/06/12 9:00:00 Acetadote 9,230 mg, Route: IV, 10/03/2012 10/03/2012 Deleted ONCE, Dosing Weight 58.3, kg, Start date: 10/03/12 8:18:00, Stop date: 10/03/12 8:18:00 Keppra + Sodium Chloride 1,000 mg, Route: IVPB, 10/05/2012 10/06/2012 Discontinued 0.9% IV 100 mL Q12H, Dosing Weight 92.3, kg, Start date: 10/05/12 21:00:00, Duration: 30 day, Stop date: 11/04/12 9:00:00 vancomycin 1 gm, Route: IVPB, Drug 10/03/2012 10/03/2012 Discontinued form: INJ, ABXQ8H, Dosing Weight 58.3, kg, Start date: 10/03/12 5:00:00, Duration: 30 day, Stop date: 11/01/12 21:00:00 Haldol 5 mg, 1 tab, Route: PO, 10/09/2012 10/16/2012 Discontinued Drug form: TAB, TID, Dosing Weight 92.3, kg, PRN Anxiety, Start date: 10/09/12 10:56:00, Duration: 30 day, Stop date: 11/08/12 10:55:00 Keppra + Sodium Chloride 500 mg, Route: IV, ONCE, 10/05/2012 10/05/2012 Completed 0.9% IV 100 mL Dosing Weight 92.3, kg, Start date: 10/05/12 0:03:00, Stop date: 10/05/12 0:03:00 Ativan 1 mg, Route: IVP, ONCE, 10/05/2012 10/05/2012 Completed Dosing Weight 92.3, kg, PRN Anxiety, Start date: 10/05/12 17:00:00 vancomycin + Sodium 1.5 gm, Route: IVPB, 10/02/2012 10/02/2012 Completed Chloride 0.9% IV 250 mL ONCE, Dosing Weight 58.3, kg, Start date: 10/02/12 21:04:00, Stop date: 10/02/12 21:04:00 acetylcysteine 20% 2,915 mg, 14.58 mL, 10/02/2012 10/02/2012 Completed intravenous solution + Route: IVPB, Drug form: Dextrose 5% in Water IV SOLN, ONCE, Dosing 500 mL Weight 58.3, kg, Start date: 10/02/12 19:31:00, Stop date: 10/02/12 19:31:00 Ativan 2 mg, 1 mL, Route: IV, 10/05/2012 10/09/2012 Discontinued Drug form: INJ, Q15Min, Dosing Weight 92.3, kg, PRN Anxiety, Start date: 10/05/12 22:45:00, Duration: 2 doses or times, Stop date: Limited # of times, seziure PlasmaLyte A PH-7.4 1,000 1,000 mL, Rate: 150 10/03/2012 10/03/2012 Discontinued mL ml/hr, Infuse over: 6.7 hr, Route: IV, Dosing Weight 58.3 kg, Total Volume: 1,000, Start date: 10/03/12 8:02:00, Stop date: 11/02/12 8:01:00 Lactated Ringers (Bolus) 2,000 mL, Rate: 2,000 10/03/2012 10/03/2012 Discontinued IV 2,000 mL ml/hr, Infuse over: 1 hr, Route: IV, Dosing Weight 58.3 kg, Total Volume: 2,000, Start date: 10/03/12 3:03:00, Duration: 1 doses or times, Stop date: 10/03/12 4:02:00 mirtazapine 15 mg oral 30 mg, 2 tab, PO, 10/14/2012 Ordered tablet Bedtime, 30 tab, Substitution Allowed, TAB Ativan 1 mg, 0.5 mL, Route: 10/05/2012 10/05/2012 Completed IVP, Drug form: INJ, ONCE, Dosing Weight 92.3, kg, PRN Seizure, Start date: 10/05/12 14:41:00 Versed 2 mg, 2 mL, Route: IVP, 10/09/2012 10/09/2012 Discontinued Drug form: INJ, PRN, Dosing Weight 92.3, kg, PRN Agitation, Start date: 10/09/12 9:38:00, Duration: 30 day, Stop date: 11/08/12 9:37:00 potassium phosphate + 15 mmol, 5 mL, Route: IVPB, ONCE, Dosing Weight 92.3, kg , Start date: 10/06/12 10:06:00, Duration: 1 doses or times, Stop date: 10:06:00, For PO4=2 - 2.4 mg/dL; Administer when K level=3.5 - 3.9 mEq/L in place of KCl 10/06/2012 10/06/2012 Completed Sodium Chloride 0.9% IV For PO4=2 - 2.4 mg/dL; Administer when K level=3.5 - 3.9 mEq/L in place of KCl 250 mL D5W 1/2NS 1000 mL 1,000 mL, Rate: 100 10/04/2012 10/04/2012 Discontinued ml/hr, Infuse over: 10 hr, Route: IV, Dosing Weight 92.3 kg, Total Volume: 1,000, Start date: 10/04/12 9:04:00, Duration: 30 day, Stop date: 11/03/12 9:03:00 Ativan 1 mg, 0.5 mL, Route: 10/05/2012 10/05/2012 Completed IVP, Drug form: INJ, ONCE, Dosing Weight 92.3, kg, PRN Anxiety, Start date: 10/05/12 19:43:00 Ativan 0.5 mg, 0.25 mL, Route: 10/05/2012 10/06/2012 Discontinued IV, Drug form: INJ, Q24H, Dosing Weight 92.3, kg, Start date: 10/05/12 21:00:00, Duration: 30 day, Stop date: 11/03/12 21:00:00 Versed 3 mg, 3 mL, Route: IVP, 10/09/2012 10/09/2012 Completed Drug form: INJ, ONCE, Dosing Weight 92.3, kg, Start date: 10/09/12 12:15:00, Stop date: 10/09/12 12:15:00 fentanyl 100 microgram, 2 mL, 10/05/2012 10/05/2012 Completed Route: IV, Drug form: INJ, ONCE, Dosing Weight 92.3, kg, Start date: 10/05/12 19:43:00, Stop date: 10/05/12 19:43:00 Remeron 15 mg, 1 tab, Route: PO, 10/09/2012 10/11/2012 Discontinued Drug form: TAB, Bedtime, Dosing Weight 92.3, kg, Start date: 10/09/12 21:20:00, Duration: 30 day, Stop date: 11/08/12 21:00:00 potassium phosphate + 18 mmol, 6 mL, Route: 10/05/2012 10/05/2012 Completed Sodium Chloride 0.9% IV IVPB, ONCE, Dosing 250 mL Weight 92.3, kg, Priority: STAT, Start date: 10/05/12 1:43:00, Stop date: 10/05/12 1:43:00 Lexapro 10 mg oral tablet 10 mg, 1 tab, PO, Daily, 10/14/2012 Ordered 30 tab, Substitution Allowed, TAB clonidine 0.3 mg oral 0.3 mg, 1 tab, PO, Q8H, 10/14/2012 Ordered tablet 90 tab, Substitution Allowed, TAB Keppra + Sodium Chloride 1,750 mg, Route: IV, ONCE, Dosing Weight 58.3, kg, Loading Dose, Start date: 10/03/12 7:56:00, Duration: 0, Stop date: 10/03/12 7: 56:00, Pediatric Dosing 10/03/2012 10/03/2012 Completed 0.9% IV 100 mL Pediatric Dosing amLODipine 5 mg oral 5 mg, 1 tab, PO, Daily, 10/14/2012 Ordered tablet 30 tab, Substitution Allowed, TAB Ativan 1 mg, 0.5 mL, Route: IV, 10/05/2012 10/05/2012 Discontinued Drug form: INJ, Q4H, Dosing Weight 92.3, kg, Start date: 10/05/12 12:00:00, Stop date: 11/04/12 8:00:00 Versed 50 mg in NS 50 ml 50 mg, 50 mL, Rate: 10/03/2012 10/04/2012 Discontinued (titrate) IV 50 mg Titrate as directed, Dosing Weight 58.3, kg, Route: IV, Total Volume: 50 ml, Duration: 30 day, Stop date: 11/02/12 4:56:00, Replace Every: 24 hr potassium chloride 20 mEq, 100 mL, Route: IVPB, Drug form: INJ, Q2H, Dosing Weight 58.3, kg, Total dose=60 mEq, Start date: 10/02/12 22:00:00, Duration: 3 doses or times, Stop date: 10/03/12 2:00:00, For K=3.0 - 3.4mEq/L 10/02/2012 10/03/2012 Completed For K=3.0 - 3.4mEq/L NS 1,000 mL 1,000 mL, Rate: 200 10/02/2012 10/03/2012 Discontinued ml/hr, Infuse over: 5 hr, Route: IV, Dosing Weight 58.3 kg, Total Volume: 1,000, Start date: 10/02/12 20:56:00, Duration: 30 day, Stop date: 11/01/12 20:55:00 Haldol 2 mg, 0.4 mL, Route: IV, 10/03/2012 10/16/2012 Discontinued Drug form: INJ, Q4H, Dosing Weight 92.3, kg, PRN Agitation, Start date: 10/03/12 12:35:00, Duration: 30 day, Stop date: 11/02/12 12:34:00 D5W 1/2NS 1,000 mL 1,000 mL, Rate: 125 10/04/2012 10/05/2012 Discontinued ml/hr, Infuse over: 8 hr, Route: IV, Dosing Weight 92.3 kg, Total Volume: 1,000, Start date: 10/04/12 8:59:00, Duration: 30 day, Stop date: 11/03/12 8:58:00 clonidine 0.3 mg, 1 tab, Route: 10/08/2012 10/16/2012 Discontinued PO, Drug form: TAB, Q8H, Dosing Weight 92.3, kg, Start date: 10/08/12 16:00:00, Stop date: 11/07/12 8:00:00 magnesium sulfate 2 gm, 50 mL, Route: IVPB, Drug form: INJ, ONCE, Dosing Weight 92.3, kg, Start date: 10/05/12 22:30:00, Duration: 1 doses or times, Stop date: 10/05/12 22:30:00, For Mg=1.8 - 2 mg/dL 10/05/2012 10/06/2012 Completed For Mg=1.8 - 2 mg/dL potassium chloride 20 mEq, Route: IVPB, Q2H, Dosing Weight 92.3, kg, Total dose=60 mEq, Start date: 10/07/12 4:00:00, Duration: 3 doses or times, Stop date : 10/07/12 8:00:00, For K=3.0 - 3.4mEq/L 10/07/2012 10/07/2012 Canceled For K=3.0 - 3.4mEq/L lactulose 20 gm, 30 ml, Route: NG, 10/04/2012 10/07/2012 Discontinued Drug Form: SYRP, Dosing Weight 92.3, kg, TID, Start date: 10/04/12 13:00:00, Duration: 30 day, Stop date: 11/03/12 9:00:00 sodium phosphate 15 mmol, Route: IVPB, ONCE, Dosing Weight 92.3, kg, Start date: 10/07/12 3:13:00, Duration: 1 doses or times, Stop date: 10/07/12 3:13:00 , For PO4=2 - 2.4 mg/dL 10/07/2012 10/07/2012 Discontinued For PO4=2 - 2.4 mg/dL Dextrose 50% Syringe 12.5 gm, 25 mL, Route: 10/02/2012 10/03/2012 Discontinued IVP, Drug Form: INJ, Dosing Weight 58.3, kg, PRN, PRN Blood Glucose Results, Start date: 10/02/12 21:10:00, Duration: 30 day, Stop date: 11/01/12 21:09:00 Dextrose 50% Syringe 25 gm, 50 mL, Route: 10/02/2012 10/03/2012 Discontinued IVP, Drug Form: INJ, Dosing Weight 58.3, kg, PRN, PRN Blood Glucose Results, Start date: 10/02/12 21:10:00, Duration: 30 day, Stop date: 11/01/12 21:09:00 Insulin regular 100 unit + 100 mL, Rate: Start Insulin Drip Per ICU Protocol, Dosing Weight 58.3, kg, Route: IVPB, Total Volume: 100, Duration: 30 day, Stop date: 11/01/12 21:09:00, Replace Every: 24 hr, Initial Insulin Drip Rate 201210/03/2012 Discontinued Sodium Chloride 0.9% (units/hour)=(Fasting Blood Glucose-60)X0.03 "mu... (titrate) 100 mL Initial Insulin Drip Rate (units/hour)=(Fasting Blood Glucose -60)X0.03 "multiplier". potassium phosphate + 30 mmol, 10 mL, Route: IVPB, ONCE, Dosing Weight 92.3, kg, Start date: 10/05/12 22:30:00, Duration: 1 doses or times, Stop date: 22:30:00, For PO4=1.5 - 1.9 mg/dL; Administer when level=3 - 3.4 mEq/L in place of KCl 10/05/2012 10/06/2012 Completed Sodium Chloride 0.9% IV For PO4=1.5 - 1.9 mg/dL; Administer when level=3 - 3.4 mEq/L in place of KCl 250 mL Cardene 40 mg in NS 200 ml 40 mg, 200 mL, Rate: 10/06/2012 10/06/2012 Discontinued IV 40 mg Titrate, Dosing Weight 92.3, kg, Route: IV, Total Volume: 200 mL, Duration: 30 day, Stop date: 11/05/12 9:49:00, Replace Every: 24 hr Protonix 40 mg, Route: IVP, Drug 10/03/2012 10/09/2012 Discontinued form: INJ, Daily, Dosing Weight 58.3, kg, Start date: 10/03/12 0:14:00, Duration: 30 day, Stop date: 11/01/12 9:00:00 Ativan 2 mg, 1 mL, Route: IV, 10/03/2012 10/03/2012 Completed Drug form: INJ, ONCE, Dosing Weight 58.3, kg, Start date: 10/03/12 7:52:00, Stop date: 10/03/12 7:52:00 Ativan 2 mg, 1 mL, Route: IVP, 10/04/2012 10/05/2012 Completed Drug form: INJ, ONCE, Dosing Weight 92.3, kg, Start date: 10/04/12 23:45:00, Stop date: 10/04/12 23:45:00 Neutra-Phos 2 pkt, Route: PO, Drug 10/04/2012 10/04/2012 Completed Form: PDR/REC, Dosing Weight 92.3, kg, ONCE, Start date: 10/04/12 6:08:00, Stop date: 10/04/12 6:08:00 clonidine 0.1 mg, 1 tab, Route: 10/07/2012 10/08/2012 Discontinued PO, Drug form: TAB, Q12H, Dosing Weight 92.3, kg, Priority: NOW, Start date: 10/07/12 10:20:00, Duration: 30 day, Stop date: 11/06/12 9:00:00 Fleet Enema 133 ml, Route: SD, Drug 10/08/2012 10/08/2012 Completed Form: RADHA, Dosing Weight 92.3, kg, ONCE, Start date: 10/08/12 13:30:00, Stop date: 10/08/12 13:30:00 Dextrose 5% in Water IV 1,000 mL, Rate: 65.38 10/03/2012 10/04/2012 Completed 1,000 mL + acetylcysteine ml/hr, Infuse over: 16 9,230 mg hr, Route: IV, Dosing Weight 92.3 kg, Total Volume: 1,046.15, Start date: 10/03/12 10:00:00, Duration: 16 hr, Stop date: 10/04/12 1:59:00 etomidate 20 mg, Route: IV, ONCE, 10/02/2012 10/02/2012 Completed Dosing Weight 58.3, kg, Start date: 10/02/12 19:45:00, Stop date: 10/02/12 19:45:00 insulin aspart 3 unit, 0.03 mL, Route: 10/02/2012 10/02/2012 Discontinued SUB-Q, Drug form: SOLN, Sliding Scale, Dosing Weight 58.3, kg, PRN Blood Glucose Results, Start date: 10/02/12 20:17:00, Duration: 30 day, Stop date: 11/01/12 20:16:00 insulin aspart 4 unit, 0.04 mL, Route: 10/02/2012 10/02/2012 Discontinued SUB-Q, Drug form: SOLN, Sliding Scale, Dosing Weight 58.3, kg, PRN Blood Glucose Results, Start date: 10/02/12 20:17:00, Duration: 30 day, Stop date: 11/01/12 20:16:00 insulin aspart 5 unit, 0.05 mL, Route: 10/02/2012 10/02/2012 Discontinued SUB-Q, Drug form: SOLN, Sliding Scale, Dosing Weight 58.3, kg, PRN Blood Glucose Results, Start date: 10/02/12 20:17:00, Duration: 30 day, Stop date: 11/01/12 20:16:00 insulin aspart 1 unit, 0.01 mL, Route: 10/02/2012 10/02/2012 Discontinued SUB-Q, Drug form: SOLN, Sliding Scale, Dosing Weight 58.3, kg, PRN Blood Glucose Results, Start date: 10/02/12 20:17:00, Duration: 30 day, Stop date: 11/01/12 20:16:00 insulin aspart 2 unit, 0.02 mL, Route: 10/02/2012 10/02/2012 Discontinued SUB-Q, Drug form: SOLN, Sliding Scale, Dosing Weight 58.3, kg, PRN Blood Glucose Results, Start date: 10/02/12 20:17:00, Duration: 30 day, Stop date: 11/01/12 20:16:00 Dextrose 50% Syringe 12.5 gm, 25 mL, Route: 10/02/2012 10/02/2012 Discontinued IVP, Drug Form: INJ, Dosing Weight 58.3, kg, PRN, PRN Blood Glucose Results, Start date: 10/02/12 20:17:00, Duration: 30 day, Stop date: 11/01/12 20:16:00 Dextrose 50% Syringe 25 gm, 50 mL, Route: 10/02/2012 10/02/2012 Discontinued IVP, Drug Form: INJ, Dosing Weight 58.3, kg, PRN, PRN Blood Glucose Results, Start date: 10/02/12 20:17:00, Duration: 30 day, Stop date: 11/01/12 20:16:00 glucagon 1 mg, Route: IM, Drug 10/02/2012 10/02/2012 Discontinued form: PDR/INJ, PRN, Dosing Weight 58.3, kg, PRN Blood Glucose Results, Start date: 10/02/12 20:17:00, Duration: 30 day, Stop date: 11/01/12 20:16:00 amLODipine 5 mg, 1 tab, Route: PO, 10/09/2012 10/16/2012 Discontinued Drug form: TAB, Daily, Dosing Weight 92.3, kg, Start date: 10/09/12 20:33:00, Duration: 30 day, Stop date: 11/08/12 9:00:00 magnesium sulfate 2 gm, 50 mL, Route: IVPB, Drug form: INJ, Q2H, Dosing Weight 58.3, kg, Start date: 10/02/12 22:00:00, Duration: 3 doses or times, Stop date: 10/03/12 2:00:00, For Mg=1.0 - 1.4 mg/dL 10/02/2012 10/03/2012 Completed For Mg=1.0 - 1.4 mg/dL sodium phosphate 30 mmol, Route: IVPB, ONCE, Dosing Weight 58.3, kg, Start date: 10/02/12 20:55:00, Duration: 1 doses or times, Stop date: 10/02/12 20:55: 00, For PO4=1.5 - 1.9 mg/dL 10/02/2012 10/02/2012 Discontinued For PO4=1.5 - 1.9 mg/dL pantoprazole 40 mg, 1 tab, Route: NG, 10/03/2012 10/03/2012 Discontinued Drug form: ECTAB, Before Dinner, Dosing Weight 58.3, kg, Start date: 10/03/12 0:00:00, Duration: 30 day, Stop date: 11/01/12 16:30:00 Vital Signs Most recent to oldest 1 2 3 4 [Reference Range]: Height 167.64 cm 165.1 cm 167.64 cm 167.64 cm (10/02/2012 19:06:00) (10/02/2012 19:05:00) (10/02/2012 18:44:00) (2012 18:44:00) Current Weight 58.3 kg (10/02/2012 20:15:00) Temperature Oral 98.4 DegF 98.4 DegF 98.3 DegF [96.4-99.1 DegF] (10/16/2012 07:48:00) (10/16/2012 04:01:00) (10/16/2012 00: 47:00) Systolic Blood Pressure 117 mmHg 138 mmHg 144 mmHg [90-140 mmHg] (10/16/2012 07:48:00) (10/16/2012 04:01:00) *HI* (10/16/2012 00:47:00) Diastolic Blood 60 mmHg 62 mmHg 65 mmHg Pressure [60-90 mmHg] (10/16/2012 07:48:00) (10/16/2012 04:01:00) (2012 00:47:00) Respiratory Rate [14-20 18 BRMIN 18 BRMIN 18 BRMIN BRMIN] (10/16/2012 07:48:00) (10/16/2012 04:01:00) (10/16/2012 00:47:00) Peripheral Pulse Rate 56 bpm 68 bpm 58 bpm [60-100 bpm] *LOW* (10/16/2012 04:01:00) *LOW* (10/16/2012 07:48:00) (10/16/2012 00:47:00) Weight 92.3 kg 58.3 kg 58.3 kg (10/03/2012 08:54:00) (10/02/2012 19:06:00) (10/02/2012 19:05:00) Results BACTERIAL - SEROLOGY Most recent to oldest [Reference Range]: 1 2 3 MRSA by PCR Negative 1 (10/02/2012 18:41:55) 1Interpretive Data: Interpretive Data: The [employer] LightCycler MRSA assay is a qualitative test for thedirect detection of nasal colonization with methicillin- resistant Staphylococcus aureus (MRSA) to aid in the prevention and control of MRSA infections in healthcare settings. A positive result does notindicate an infection or require treatment. A negative result does not exclude colonization or infection. The polymerase chain reaction (PCR) assay detects a proprietary sequence indicative of the integration of the SCCmec cassette into the Staphylococcus aureus chromosome, indicating the presence of MRSA DNA. The assay utilizes FDA cleared IVD reagents. Performance characteristics have been verified by the [facility] within the [facility]. The [facility] is authorized under the Clinical Laboratory Improvement Amendment of 1988 (CLIA-88) to performhigh complexity testing.BEDSIDE GLUCOSE TESTING Most recent to oldest 1 2 3 [Reference Range]: Gluc POC Lifscn [70-99 111 mg/dL 2 109 mg/dL 3 108 mg/dL 4 mg/dL] *HI* *HI* *HI* (10/14/2012 07:13:00) (10/14/2012 06:15:00) (10/13/2012 23:50:00) Comment1 Notify RN/MD Notify RN/MD Notify RN/MD *NA* *NA* *NA* (10/14/2012 07:13:00) (10/14/2012 06:15:00) (10/13/2012 23:50:00) 2Interpretive Data: Upper Reportable Limit: 200 mg/dL.3Interpretive Data: Upper Reportable Limit: 200 mg/dL.4Interpretive Data: Upper Reportable Limit: 200 mg/dL.URINALYSIS Most recent to oldest [Reference Range]: 1 2 3 UA Turbidity [Clear] Slight *ABN* (10/02/2012 20:08:43) UA Color [Yellow] Yellow *NA* (10/02/2012 20:08:43) UA pH [5.0-8.0] 5.0 (10/02/2012 20:08:43) UA Spec Grav [<=1.030] 1.022 (10/02/2012 20:08:43) UA Glucose [Negative mg/dL] 300 mg/dL *ABN* (10/02/2012 20:08:43) UA Blood [Negative] Negative (10/02/2012 20:08:43) UA Ketones [Negative mg/dL] >=150 mg/dL *ABN* (10/02/2012 20:08:43) UA Protein [Negative mg/dL] 70 mg/dL *ABN* (10/02/2012 20:08:43) UA Urobilinogen [0.1-1.0 mg/dL] <=1.0 mg/dL *NA* (10/02/2012 20:08:43) UA Bili [Negative] Negative *NA* (10/02/2012 20:08:43) UA Leuk Est [Negative] Trace *ABN* (10/02/2012 20:08:43) UA Nitrite [Negative] Negative (10/02/2012 20:08:43) UA WBC [0-5 /HPF] 8 /HPF *HI* (10/02/2012 20:08:43) UA RBC [0-2 /HPF] 11 /HPF *HI* (10/02/2012 20:08:43) UA Bacteria [None Seen /HPF] Occasional /HPF *NA* (10/02/2012 20:08:43) UA Sq Epi [Few /LPF] Moderate /LPF *ABN* (10/02/2012 20:08:43) UA Hyal Cast [0-2 /LPF] 3 /LPF *HI* (10/02/2012 20:08:43) UA Mucus [None Seen /LPF] Few /LPF *NA* (10/02/2012 20:08:43) UA Gran Cast 3 /LPF *NA* (10/02/2012 20:08:43) BLOOD BANK RESULTS Most recent to oldest [Reference Range]: 1 2 3 ABO/Rh A POS *Unknown* (10/02/2012 22:00:00) Antibody Scrn Negative (10/02/2012 22:00:00) CHEMISTRY Most recent to oldest 1 2 3 [Reference Range]: Sodium Lvl [135-145 mEq/L] 142 mEq/L 143 mEq/L 143 mEq/L (10/11/2012 05:27:00) (10/10/2012 03:31:00) (10/09/2012 03:17:00) Potassium Lvl [3.5-5.1 4.2 mEq/L 3.4 mEq/L 3.5 mEq/L mEq/L] (10/11/2012 05:27:00) *LOW* (10/09/2012 03:17:00) (10/10/2012 03:31:00) Chloride Lvl [95-109 mEq/L] 103 mEq/L 101 mEq/L 101 mEq/L (10/11/2012 05:27:00) (10/10/2012 03:31:00) (10/09/2012 03:17:00) CO2 [24-32 mEq/L] 27 mEq/L 32 mEq/L 32 mEq/L (10/11/2012 05:27:00) (10/10/2012 03:31:00) (10/09/2012 03:17:00) AGAP [10.0-20.0 mEq/L] 16.2 mEq/L 13.4 mEq/L 13.5 mEq/L (10/11/2012 05:27:00) (10/10/2012 03:31:00) (10/09/2012 03:17:00) Creatinine Lvl [0.5-1.4 0.6 mg/dL 0.6 mg/dL 0.6 mg/dL mg/dL] (10/11/2012 05:27:00) (10/10/2012 03:31:00) (10/09/2012 03:17:00) eGFR 101 mL/min/1.73m2 5 101 mL/min/1.73m2 6 101 mL/min/1.73m2 7 *NA* *NA* *NA* (10/11/2012 05:27:00) (10/10/2012 03:31:00) (10/09/2012 03:17:00) BUN [7-22 mg/dL] 11 mg/dL 14 mg/dL 11 mg/dL (10/11/2012 05:27:00) (10/10/2012 03:31:00) (10/09/2012 03:17:00) B/C Ratio [6-25] 12 12 9 (10/04/2012 14:51:00) (10/03/2012 02:20:00) (10/02/2012 18:41:24) Glucose Lvl [70-99 mg/dL] 93 mg/dL 8 105 mg/dL 9 117 mg/dL 10 (10/11/2012 05:27:00) *HI* *HI* (10/10/2012 03:31:00) (10/09/2012 03:17:00) Total Protein [6.4-8.4 5.6 g/dL 4.6 g/dL 4.8 g/dL g/dL] *LOW* *LOW* *LOW* (10/11/2012 05:27:00) (10/08/2012 04:05:00) (10/07/2012 00:48:51) Albumin Lvl [3.5-5.0 g/dL] 2.1 g/dL 2.0 g/dL 2.1 g/dL *LOW* *LOW* *LOW* (10/11/2012 05:27:00) (10/08/2012 04:05:00) (10/07/2012 00:48:51) Globulin [2.0-4.0 g/dL] 3.5 g/dL 2.6 g/dL 2.7 g/dL (10/11/2012 05:27:00) (10/08/2012 04:05:00) (10/07/2012 00:48:51) A/G Ratio [0.7-1.6] 0.6 0.8 0.8 *LOW* (10/08/2012 04:05:00) (10/07/2012 00:48:51) (10/11/2012 05:27:00) Calcium Lvl [8.5-10.5 8.5 mg/dL 8.2 mg/dL 8.2 mg/dL mg/dL] (10/11/2012 05:27:00) *LOW* *LOW* (10/10/2012 03:31:00) (10/09/2012 03:17:00) Phosphorus [2.5-4.5 mg/dL] 3.3 mg/dL 3.3 mg/dL 3.5 mg/dL (10/11/2012 05:27:00) (10/10/2012 03:31:00) (10/09/2012 03:17:00) Magnesium Lvl [1.8-2.4 2.2 mg/dL 2.2 mg/dL 2.1 mg/dL mg/dL] (10/11/2012 05:27:00) (10/10/2012 03:31:00) (10/09/2012 03:17:00) ALT [0-65 unit/L] 100 unit/L 295 unit/L 514 unit/L *HI* *HI* *HI* (10/11/2012 05:27:00) (10/08/2012 04:05:00) (10/07/2012 00:48:51) AST [0-37 unit/L] 22 unit/L 53 unit/L 116 unit/L (10/11/2012 05:27:00) *HI* *HI* (10/08/2012 04:05:00) (10/07/2012 00:48:51) Alk Phos [39-136 unit/L] 76 unit/L 96 unit/L 121 unit/L (10/11/2012 05:27:00) (10/08/2012 04:05:00) (10/07/2012 00:48:51) Bili Total [0.2-1.3 mg/dL] 0.3 mg/dL 0.4 mg/dL 0.4 mg/dL (10/11/2012 05:27:00) (10/08/2012 04:05:00) (10/07/2012 00:48:51) Bili Direct [0.0-0.3 mg/dL] 0.1 mg/dL 0.2 mg/dL 0.2 mg/dL (10/11/2012 05:27:00) (10/08/2012 04:05:00) (10/07/2012 00:48:51) Bili Indirect [0.0-1.0 0.2 mg/dL 0.2 mg/dL 0.2 mg/dL mg/dL] (10/11/2012 05:27:00) (10/08/2012 04:05:00) (10/07/2012 00:48:51) Amylase Lvl [25-115 unit/L] 1195 unit/L *HI* (10/02/2012 20:08:00) Lipase Lvl [73-393 unit/L] 40 unit/L 252 unit/L *LOW* (10/02/2012 20:08:28) (10/04/2012 14:51:00) Ketone Quantitative [<=0.27 0.10 mmol/L mmol/L] (10/02/2012 20:08:28) Ammonia [<=45.0 uMol/L] 42.0 uMol/L 33.0 uMol/L 32.0 uMol/L (10/08/2012 04:05:00) (10/07/2012 00:48:51) (10/06/2012 04:00:41) Lactic Acid Lvl [0.5-2.2 0.8 mMol/L 0.8 mMol/L 1.4 mMol/L mMol/L] (10/11/2012 05:27:00) (10/08/2012 04:05:00) (10/07/2012 00:48:51) Total CK [12-191 unit/L] 187 unit/L 440 unit/L 295 unit/L (10/05/2012 17:02:00) *HI* *HI* (10/03/2012 02:20:44) (10/02/2012 20:08:28) CK MB [0.5-3.6 ng/mL] 12.6 ng/mL 3.8 ng/mL *HI* *HI* (10/03/2012 02:20:44) (10/02/2012 20:08:28) CK MB Index [0.0-2.5] 2.9 1.3 *HI* (10/02/2012 20:08:28) (10/03/2012 02:20:44) Troponin-T [0.000-0.100 <0.010 ng/mL 0.019 ng/mL ng/mL] (10/03/2012 02:20:44) (10/02/2012 20:08:28) Troponin-I [0.00-0.40 0.12 ng/mL 0.05 ng/mL ng/mL] (10/03/2012 02:20:44) (10/02/2012 20:08:28) BNP [<=100 pg/mL] 30 pg/mL 11 (10/02/2012 20:08:28) CHD Risk [3.90-5.80] 2.05 *LOW* (10/02/2012 20:08:28) Chol [<=199 mg/dL] 152 mg/dL 12 (10/02/2012:08:28) Trig [<=149 mg/dL] 123 mg/dL 13 (10/02/2012 20:08:28) HDL [>=61 mg/dL] 74 mg/dL 14 (10/02/2012:08:28) LDL [<=99 mg/dL] 53 mg/dL 15 (10/02/2012:08:28) Hgb A1C [<=5.6 %] 5.3 % 16 (10/02/2012 18:41:37) TSH [0.360-3.740 uIU/mL] 2.310 uIU/mL (10/02/2012 20:08:28) Ca Ion mgdL [4.65-5.20 5.04 mg/dL 4.60 mg/dL 4.44 mg/dL mg/dL] (10/11/2012 05:27:00) *LOW* *LOW* (10/10/2012 03:31:00) (10/09/2012 03:17:00) Ca Ion [1.16-1.30 mMol/L] 1.26 mMol/L 1.15 mMol/L 1.11 mMol/L (10/11/2012 05:27:00) *LOW* *LOW* (10/10/2012 03:31:00) (10/09/2012 03:17:00) Ca Norm [1.16-1.30 mMol/L] 1.31 mMol/L 1.18 mMol/L 1.17 mMol/L *HI* (10/10/2012 03:31:00) (10/09/2012 03:17:00) (10/11/2012 05:27:00) Ca Norm mgdL [4.65-5.20 5.24 mg/dL 4.72 mg/dL 4.68 mg/dL mg/dL] *HI* (10/10/2012 03:31:00) (10/09/2012 03:17:00) (10/11/2012 05:27:00) U Methadone Scr [Negative] Negative *NA* (10/02/2012 20:08:43) U Propoxyph Scr [Negative] Negative *NA* (10/02/2012 20:08:43) U Amph Scr [Negative] Negative *NA* (10/02/2012 20:08:43) U Emily Scr [Negative] Negative *NA* (10/02/2012 20:08:43) U Benzodia Scr [Negative] Positive *ABN* (10/02/2012 20:08:43) U Cocaine Scr [Negative] Negative *NA* (10/02/2012 20:08:43) U Opiate Scr [Negative] Positive *ABN* (10/02/2012 20:08:43) U Phencyc Scr [Negative] Negative *NA* (10/02/2012 20:08:43) U Cannab Scr [Negative] Negative *NA* (10/02/2012 20:08:43) UDS Note See Note 17 (10/02/2012 20:08:43) Vanco Tr TND 0700 0630 2100 *NA* *NA* *NA* (10/06/2012 06:34:35) (10/05/2012 06:14:55) (10/03/2012 20:25:20) Vanco Tr 15.0 ug/ml 18 15.1 ug/ml 19 14.4 ug/ml 20 *NA* *NA* *NA* (10/06/2012 06:34:35) (10/05/2012 06:14:55) (10/03/2012 20:25:20) Acetaminoph Lvl [10-20 6 ug/ml 7 ug/ml 8 ug/ml ug/ml] *LOW* *LOW* *LOW* (10/06/2012 04:00:41) (10/05/2012 00:15:58) (10/04/2012 14:51:00) Prolactin Lvl 23.6 ng/mL 21 *NA* (10/05/2012 00:15:58) U Preg [Negative] Negative (10/02/2012 20:08:00) POC A Hct [36.0-48.0 %] 44.0 % 48.0 % 44.0 % (10/02/2012 20:59:00) (10/02/2012 18:32:00) (10/02/2012 18:09:00) POC A Ca Ion [1.16-1.30 1.13 mMol/L 1.17 mMol/L 1.14 mMol/L mMol/L] *LOW* (10/02/2012 18:32:00) *LOW* (10/02/2012 20:59:00) (10/02/2012 18:09:00) POC A K [3.5-5.1 mEq/L] 2.9 mEq/L 2.9 mEq/L 3.0 mEq/L *CRIT* *CRIT* *CRIT* (10/02/2012 20:59:00) (10/02/2012 18:32:00) (10/02/2012 18:09:00) POC A Source ART ART ART *NA* *NA* *NA* (10/10/2012 03:19:00) (10/09/2012 09:01:00) (10/09/2012 03:10:00) POC A Temp 37.0 DegC 37.0 DegC 37.0 DegC *NA* *NA* *NA* (10/10/2012 03:19:00) (10/09/2012 09:01:00) (10/09/2012 03:10:00) POC A pH [7.35-7.45] 7.53 7.51 7.49 *HI* *HI* *HI* (10/10/2012 03:19:00) (10/09/2012 09:01:00) (10/09/2012 03:10:00) POC A PCO2 [35-45 mmHg] 44 mmHg 47 mmHg 50 mmHg (10/10/2012 03:19:00) *HI* *HI* (10/09/2012 09:01:00) (10/09/2012 03:10:00) POC A PO2 [80-100 mmHg] 91 mmHg 134 mmHg 115 mmHg (10/10/2012 03:19:00) *HI* *HI* (10/09/2012 09:01:00) (10/09/2012 03:10:00) POC A HCO3 [22-26 mMol/L] 37 mMol/L 38 mMol/L 38 mMol/L *HI* *HI* *HI* (10/10/2012 03:19:00) (10/09/2012 09:01:00) (10/09/2012 03:10:00) POC A BE [-2-2 mMol/L] 13 mMol/L 13 mMol/L 13 mMol/L *HI* *HI* *HI* (10/10/2012 03:19:00) (10/09/2012 09:01:00) (10/09/2012 03:10:00) POC A O2 Sat [95.0-100.0 %] 98.0 % 99.0 % 99.0 % (10/10/2012 03:19:00) (10/09/2012 09:01:00) (10/09/2012 03:10:00) POC A Glu [70-99 mg/dL] 142 mg/dL 233 mg/dL 283 mg/dL *HI* *HI* *HI* (10/02/2012 20:59:00) (10/02/2012 18:32:00) (10/02/2012 18:09:00) POC A LA [0.5-2.2 mMol/L] 3.4 mMol/L 5.2 mMol/L 7.0 mMol/L *HI* *HI* *HI* (10/03/2012 02:31:00) (10/02/2012 20:59:00) (10/02/2012 18:32:00) POC A Na [135-145 mEq/L] 136 mEq/L 134 mEq/L 130 mEq/L (10/02/2012 20:59:00) *LOW* *LOW* (10/02/2012 18:32:00) (10/02/2012 18:09:00) POC A Mode 2 L/NC T TUBE PRVC/AC *NA* *NA* *NA* (10/10/2012 03:19:00) (10/09/2012 09:01:00) (10/09/2012 03:10:00) POC A Mech Rate [0-70 bpm] 12 bpm 12 bpm 6 bpm (10/09/2012 03:10:00) (10/08/2012 03:58:00) (10/07/2012 00:11:00) POC A VT [2-1200 mL] 400 mL 400 mL 400 mL (10/09/2012 03:10:00) (10/08/2012 03:58:00) (10/07/2012 00:11:00) POC A PEEP [0.0-40.0 cmH20] 5.0 cmH20 5.0 cmH20 5.0 cmH20 (10/09/2012 09:01:00) (10/09/2012 03:10:00) (10/08/2012 03:58:00) POC A %FIO2 [18.0-100.0 %] 40.0 % 40.0 % 40.0 % (10/09/2012 09:01:00) (10/09/2012 03:10:00) (10/08/2012 03:58:00) POC V Source BOB *NA* (10/03/2012 03:25:00) POC V Temp 37.0 DegC *NA* (10/03/2012 03:25:00) POC V pH [7.28-7.42] 7.28 (10/03/2012 03:25:00) POC V PCO2 [38-52 mmHg] 33 mmHg *LOW* (10/03/2012 03:25:00) POC V PO2 [20-49 mmHg] 47 mmHg (10/03/2012 03:25:00) POC V HCO3 [22-26 mmol/L] 16 mmol/L *LOW* (10/03/2012 03:25:00) POC V BE [-2-2 mmol/L] -10 mmol/L *LOW* (10/03/2012 03:25:00) POC V O2 Sat [40.0-70.0 %] 76.0 % *HI* (10/03/2012 03:25:00) POC V Hct [36.0-48.0 %] 41.0 % (10/03/2012 03:25:00) POC V Ion Ca [1.16-1.30 1.15 mMol/L mMol/L] *LOW* (10/03/2012 03:25:00) POC V K [3.5-5.1 mEq/L] 3.5 mEq/L (10/03/2012 03:25:00) POC V Na [135-145 mEq/L] 135 mEq/L (10/03/2012 03:25:00) 5Result Comment: The eGFR is calculated using the CKD-EPI formula. In most young , healthy individualsthe eGFR will be >90 mL/min/1.73m2. The eGFR declines with age. An eGFR of 60-89 may be normal in some populations, particularly the elderly, for whom the CKD-EPI formula has not been extensively validated. Use of the eGFR is not recommended in the following populations: Individuals with unstable creatinine concentrations, including patients and those with serious co-morbid conditions. Patients with extremes in muscle mass or diet. The data above are obtained from the National Kid[employer] Disease Education Program ( NK[employer]) which additionally recommends that when the eGFR is used in patients with extremes of body mass index for purposesof drug dosing, the eGFR should be multiplied by the estimated BMI.6Result Comment: The eGFR is calculated using the CKD-EPI formula. In most young, healthy individualsthe eGFR will be >90 mL/ min/1.73m2. The eGFR declines with age. An eGFR of 60-89 may be normal in some populations, particularly the elderly, for whom the CKD-EPI formula has not been extensively validated. Use of the eGFR is not recommended in the following populations: Individuals with unstable creatinine concentrations, including patients and those with serious co-morbid conditions. Patients with extremes in muscle mass or diet. The data above are obtained from the National [employer] Education Program ( [employer]) which additionally recommends that when the eGFR is used in patients with extremes of body mass index for purposesof drug dosing, the eGFR should be multiplied by the estimated BMI.7Result Comment: The eGFR is calculated using the CKD-EPI formula. In most young, healthy individualsthe eGFR will be >90 mL/ min/1.73m2. The eGFR declines with age. An eGFR of 60-89 may be normal in some populations, particularly the elderly, for whom the CKD-EPI formula has not been extensively validated. Use of the eGFR is not recommended in the following populations: Individuals with unstable creatinine concentrations, including patients and those with serious co-morbid conditions. Patients with extremes in muscle mass or diet. The data above are obtained from the National Kid[employer] Disease Education Program ( NK[employer]) which additionally recommends that when the eGFR is used in patients with extremes of body mass index for purposesof drug dosing, the eGFR should be multiplied by the estimated BMI.8Interpretive Data: Adult reference range values reflect the clinical guidelines of the [place] [employer].9Interpretive Data: Adult reference range values reflect the clinical guidelines of the [place] [employer].10Interpretive Data: Adult reference range values reflect the clinical guidelines of the [place] [employer].11Interpretive Data: Elevated results are in line with increasing severity of congestive heart failure. Minor elevations between 100 and 300 may be seen with Myocardial Ischemia, Sodium retaining drugs, and compensated/treated heart failure.12Interpretive Data: Reference ranges are based on the clinical guidelines of the [employer] National Cholesterol Education Program (ATP III, 2001).13Interpretive Data: Reference ranges are based on the clinical guidelines of the [employer] National Cholesterol Education Program (ATP III , 2001).14Interpretive Data: Reference ranges are based on the clinical guidelines of the [employer] National Cholesterol Education Program (ATP III, 2001) .15Interpretive Data: Reference ranges are based on the clinical guidelines of the [employer] National Cholesterol Education Program (ATP III, 2001).16Interpretive Data: The reference range is based on the clinical practice guidelines of the [place] [employer] for diabetes screening; levels of 5.7%-6.4% are indicative of pre-diabetes.17Interpretive Data: Drugs reported as positive have not been confirmed by a second method and should be used for medical purposes only. To order confirmation, contact laboratory. note: Below are cut-off concentrations for all urine drugs of abuse performed in the laboratory. Some drugs listed in the table may not be included in this panel. Description Cut-off concentration Amphetamine 1000 ng/mL Barbiturates 200 ng/mL Benzodiazepines 300 ng/mL Cocaine metabolites 300 ng/mL Opiates 300 ng/mL Phencyclidine 25 ng/mL Propoxyphene 300 ng/mL Marijuana metabolites 50 ng/mL Methadone 300 ng/mL Urine alcohol 20 mg/[id number] Data: Therapeutic Range: Trough: 10 - 20 ug/mL Peak: 20 - 40 ug/mL Potential Toxicity: >80 ug/[id number] Data: Therapeutic Range: Trough: 10 - 20 ug/mL Peak: 20 - 40 ug/mL Potential Toxicity: >80 ug/[id number] Data: Therapeutic Range: Trough: 10 - 20 ug/mL Peak: 20 - 40 ug/mL Potential Toxicity: >80 ug/[id number] Data: Male: 2.1-17.7 ng/mL Female: Non- 2.8-29.2 ng/mL 9.7-208.5 ng/mL Postmenopausal 1.8-20.3 ng/mLHEMATOLOGY Most recent to oldest 1 2 3 [Reference Range]: WBC [3.7-10.4 K/CMM] 5.5 K/CMM 6.9 K/CMM 7.2 K/CMM (10/11/2012 05:27:00) (10/10/2012 03:31:00) (10/09/2012 03:17:00) RBC [4.20-5.40 M/CMM] 3.11 M/CMM 3.14 M/CMM 3.09 M/CMM *LOW* *LOW* *LOW* (10/11/2012 05:27:00) (10/10/2012 03:31:00) (10/09/2012 03:17:00) Hgb [12.0-16.0 g/dL] 10.1 g/dL 10.0 g/dL 10.1 g/dL *LOW* *LOW* *LOW* (10/11/2012 05:27:00) (10/10/2012 03:31:00) (10/09/2012 03:17:00) Hct [36.0-48.0 %] 30.0 % 30.1 % 29.5 % *LOW* *LOW* *LOW* (10/11/2012 05:27:00) (10/10/2012 03:31:00) (10/09/2012 03:17:00) MCV [81.0-99.0 fL] 96.2 fL 95.9 fL 95.3 fL (10/11/2012 05:27:00) (10/10/2012 03:31:00) (10/09/2012 03:17:00) MCH [27.0-31.0 pg] 32.4 pg 31.9 pg 32.5 pg *HI* *HI* *HI* (10/11/2012 05:27:00) (10/10/2012 03:31:00) (10/09/2012 03:17:00) MCHC [32.0-36.0 g/dL] 33.7 g/dL 33.3 g/dL 34.1 g/dL (10/11/2012 05:27:00) (10/10/2012 03:31:00) (10/09/2012 03:17:00) RDW [11.5-14.5 %] 14.5 % 14.0 % 14.1 % (10/11/2012 05:27:00) (10/10/2012 03:31:00) (10/09/2012 03:17:00) Platelet [133-450 K/CMM] 336 K/CMM 308 K/CMM 212 K/CMM (10/11/2012 05:27:00) (10/10/2012 03:31:00) (10/09/2012 03:17:00) MPV [7.4-10.4 fL] 8.2 fL 8.4 fL 8.3 fL (10/11/2012 05:27:00) (10/10/2012 03:31:00) (10/09/2012 03:17:00) Segs [45.0-75.0 %] 61.0 % 63.4 % 73.5 % (10/11/2012 05:27:00) (10/10/2012 03:31:00) (10/09/2012 03:17:00) Lymphocytes [20.0-40.0 %] 24.8 % 21.4 % 11.7 % (10/11/2012 05:27:00) (10/10/2012 03:31:00) *LOW* (10/09/2012 03:17:00) Monocytes [2.0-12.0 %] 10.5 % 12.6 % 12.3 % (10/11/2012 05:27:00) *HI* *HI* (10/10/2012 03:31:00) (10/09/2012 03:17:00) Eosinophils [0.0-4.0 %] 3.1 % 2.1 % 2.1 % (10/11/2012 05:27:00) (10/10/2012 03:31:00) (10/09/2012 03:17:00) Basophils [0.0-1.0 %] 0.6 % 0.5 % 0.4 % (10/11/2012 05:27:00) (10/10/2012 03:31:00) (10/09/2012 03:17:00) Segs-Bands # [1.5-8.1 3.3 K/CMM 4.4 K/CMM 5.3 K/CMM K/CMM] (10/11/2012 05:27:00) (10/10/2012 03:31:00) (10/09/2012 03:17:00) Lymphocytes # [1.0-5.5 1.4 K/CMM 1.5 K/CMM 0.8 K/CMM K/CMM] (10/11/2012 05:27:00) (10/10/2012 03:31:00) *LOW* (10/09/2012 03:17:00) Monocytes # [0.0-0.8 0.6 K/CMM 0.9 K/CMM 0.9 K/CMM K/CMM] (10/11/2012 05:27:00) *HI* *HI* (10/10/2012 03:31:00) (10/09/2012 03:17:00) Eosinophils # [0.0-0.5 0.2 K/CMM 0.1 K/CMM 0.2 K/CMM K/CMM] (10/11/2012 05:27:00) (10/10/2012 03:31:00) (10/09/2012 03:17:00) PT [12.0-14.7 seconds] 14.2 seconds 14.5 seconds 14.9 seconds (10/11/2012 05:27:00) (10/10/2012 03:31:00) *HI* (10/08/2012 04:05:00) INR [0.85-1.17] 1.08 22 1.11 23 1.15 24 (10/11/2012 05:27:00) (10/10/2012 03:31:00) (10/08/2012 04:05:00) PTT [22.9-35.8 seconds] 29.5 seconds 25 35.4 seconds 26 38.7 seconds 27 (10/11/2012 05:27:00) (10/10/2012 03:31:00) *HI* (10/08/2012 04:05:00) 22Interpretive Data: RECOMMENDED RANGES FOR PROTIME INR: 2.0-3.0 for most medical and surgical thromboembolic states. 2.5-3.5 for artificial heart valves and recurrent embolism. INR SHOULD BE USED ONLY FOR PATIENTS ON STABLE ANTICOAGULANT THERAPY.23Interpretive Data: RECOMMENDED RANGES FOR PROTIME INR: 2.0-3.0 for most medical and surgical thromboembolic states. 2.5-3.5 for artificial heart valves and recurrent embolism. INR SHOULD BE USED ONLY FOR PATIENTS ON STABLE ANTICOAGULANT THERAPY.24Interpretive Data: RECOMMENDED RANGES FOR PROTIME INR: 2.0-3.0 for most medical and surgical thromboembolic states. 2.5-3.5 for artificial heart valves and recurrent embolism. INR SHOULD BE USED ONLY FOR PATIENTS ON STABLE ANTICOAGULANT THERAPY.25Interpretive Data: Heparin Therapeutic Range: 57 - 92 [id number] Data: Heparin Therapeutic Range: 57 - 92 [id number] Data: Heparin Therapeutic Range: 57 - 92 SecondsIMMUNOLOGY Most recent to oldest [Reference Range]: 1 2 3 HIV 1/2 Ab [Negative] Negative *NA* (10/02/2012 20:08:28) Hep Bs Ag [Negative] Negative *NA* (10/02/2012 20:08:28) Hep B Core IgM [Negative] Negative *NA* (10/02/2012 20:08:28) Hep A IgM [Negative] Negative *NA* (10/02/2012 20:08:28) Hep C Ab [Negative] Negative *NA* (10/02/2012 20:08:28) Microbiology Reports PROCEDURE:Gram Stain STATUS: Auth (Verified) BODY SITE: COLLECTED DATE/TIME: 10/03/2012 04:17:41 SOURCE: Trach Asp FREE TEXT SOURCE: STAIN REPORTS Stain ReportMany Wbc'S; Less Than 25 Squamous Epithelial Cells/Lpf Many Gram Positive Cocci In Pairs Rare Gram Negative Rods PROCEDURE:Culture: Respiratory w/Gram Stain STATUS: Auth (Verified) BODY SITE: COLLECTED DATE/TIME: 10/03/2012 04:17:41 SOURCE: Trach Asp FREE TEXT SOURCE: FINAL REPORTS Final ReportModerate Staphylococcus aureus Upon Supplemental Testing, This Isolate Was Not Found To Be Resistant To Clindamycin By An Inducible Mechanism. Normal Respiratory Nichol IsolatedPRELIMINARY REPORTS Preliminary ReportModerate Staphylococcus aureus Sensitivity Pending Normal Respiratory Nichol IsolatedSTAIN REPORTS Stain ReportGram Stain Performed By: [facility] Antibiotic INTERP., BENEDICT., Cefazolin S <=4 Clindamycin S <=0.25 Erythromycin R >4 Levofloxacin S <=0.5 Oxacillin S <=0.25 Rifampin S <=1 Tetracycline S <=1 Trimethoprim/Sulfamethoxazole S <=0.5/9.5 Vancomycin S 1 PROCEDURE:Culture: Urine STATUS: Auth (Verified) BODY SITE: COLLECTED DATE/TIME: 10/02/2012 21:00:00 SOURCE: Urine, Clean Catch FREE TEXT SOURCE: FINAL REPORTS Final Fxcoby20,000 - 100,000 CFU/mL Escherichia coli *PRELIMINARY REPORTS Preliminary ReportHolding For Better Growth Preliminary Eprodf83,000 - 100,000 CFU/mL Escherichia coli Sensitivity PendingSUSCEPTIBILITY REPORT EC Antibiotic INTERP. VDIL Amikacin S Ampicillin S Ampicillin/Sulbactam S Cefazolin S Cefepime S Ceftriaxone S Cefuroxime S ESBL Confirmation - Gentamicin S Levofloxacin S Meropenem S Nitrofurantoin S Piperacillin/Tazobactam S Tetracycline S Tobramycin S Trimethoprim/Sulfamethoxazole S PROCEDURE:Culture: Blood STATUS: Auth (Verified) BODY SITE: Right Arm COLLECTED DATE/TIME: 10/02/2012 18:40:05 SOURCE: Blood FREE TEXT SOURCE: set 1 FINAL REPORTS Final ReportNo Growth At 5 DaysPRELIMINARY REPORTS* Preliminary ReportNo Growth At 4 Days Preliminary ReportNo Growth At 3 Days Preliminary ReportNo Growth At 5 Days Preliminary ReportNo Growth At 1 Day Preliminary ReportNo Growth At 2 Days PROCEDURE:Culture: Resistant Acinetobacter Screen STATUS: Auth (Verified) BODY SITE: COLLECTED DATE/TIME: 10/02/2012 18:40:00 SOURCE: Nasal Swab FREE TEXT SOURCE: O2 swabs FINAL REPORTS Final ReportNo Acinetobacter IsolatedPRELIMINARY REPORTS Preliminary ReportCulture In Progress PROCEDURE:Culture: Blood STATUS: Auth (Verified) BODY SITE: Right Arm COLLECTED DATE/TIME: 10/02/2012 18:40:00 SOURCE: Blood FREE TEXT SOURCE: set 2 FINAL REPORTS Final ReportNo Growth At 5 DaysPRELIMINARY REPORTS* Preliminary ReportNo Growth At 5 Days Preliminary ReportNo Growth At 4 Days Preliminary ReportNo Growth At 2 Days Preliminary ReportNo Growth At 1 Day Preliminary ReportNo Growth At 3 Days Procedures Procedures Date Related Diagnosis Gastric bypass
[2018-11-25] MEDS ORDERED: BUPIVACAINE 0.25% PF 10 ML VIAL ONE (07:42)
[2018-11-25] MEDS ORDERED: TETRACAINE HCL 0.5% 4ML OPTH ONE (07:42)
[2018-11-25] MEDS ORDERED: CYCLOPENTOLATE 1% OPTH 2 ML ONE (07:42)
[2018-11-25] MEDS ORDERED: LIDOCAINE 2% MPF 5 ML VIAL ONE (07:42)
[2018-11-25] MEDS ORDERED: NA CHLORIDE 0.9% 500 ML ONE (07:43)
[2018-11-25] MEDS ORDERED: PHENYLEPHRINE 10% OPTH 5ML ONE (07:43)
[2018-11-25] MEDS ORDERED: LIDOCAINE HCL/PF 3.5% OPTH GEL ONE (07:43)
[2018-11-25] MEDS ORDERED: NS 0.9% VIAL 10 ML ONE (07:46)
[2018-11-25] MEDS ORDERED: MOXIFLOXACIN HCL 10 DROPS/ML **OR USE OPTH ONE (07:46)
[2018-11-25] MEDS ORDERED: LIDOCAINE 1% MPF 2 ML AMPULE ONE (07:46)
[2018-11-25] MEDS ORDERED: DUOVISC 1 KIT OPTH ONE (07:46)
[2018-11-25] MEDS ORDERED: BALANCED SALT IRRIG PLAIN 500 ML BTL IRR ONE (07:46)
[2018-11-25] MEDS ORDERED: EPINEPHRINE/PF 1 MG/ML AMP ONE (07:46)
[2018-11-25] MEDS ORDERED: CYCLOPENTOLATE 1% OPTH 2 ML OPTH ONE ×3 (07:55→08:05)
[2018-11-25] MEDS ORDERED: PHENYLEPHRINE 10% OPTH 5ML OPTH ONE ×3 (07:55→08:05)
[2018-11-25] MEDS ORDERED: BSS OPTHALMIC SOL 15 ML BOT OPTH ONE (08:06)
[2018-11-25] MEDS: LIDOCAINE HCL/PF 3.5% OPTH GEL OPTH ONE ×2 (08:15→08:56)
[2018-11-25] MEDS ORDERED: FENTANYL CITR 100 MCG/2 ML ONE (08:44)
[2018-11-25] MEDS ORDERED: MIDAZOLAM HCL 2 MG/2 ML INJ ONE (08:44)
--- NOTE | 2018-11-25 09:39 | P.BOP ---
Preoperative diagnosis: Nuclear sclerotic cataract and regular astigmatism OS Postoperative diagnosis: Same Primary procedure: Phacoemulsification with Symfony Toric IOL OS Estimated blood loss: None Anesthesia: Local (Topical with anesthesia for cataract surgery) Complications: None Implants: [id number] +22.5 @ 98 Transferred to: Other (Day surgery) Condition: Good
--- NOTE | 2018-11-25 20:25 | OP ---
Date of Procedure: 11/25/2018 Surgeon: Yohana Harvey MD Anesthesiologist: Jose Tovar CRNA; and Brent Benjamin MD. Preoperative Diagnosis: Nuclear sclerotic cataract and regular astigmatism, left eye. Operation Performed: Phacoemulsification with Symfony toric intraocular lens implant, left eye. Anesthesia: Per cataract surgery. Complications: None. Description Of Procedure: In the operating room the patient was prepped and draped in the usual ster ile fashion for ophthalmic surgery. A lid speculum was placed in the left eye. Two paracentesis sit es were made superiorly and inferiorly in the limbal cornea. Viscoat was placed in the anterior sowmya garth and a crescent blade was used to make a corneal groove and tunnel, and a keratome was used to ent er the anterior chamber. Provisc was placed in the anterior chamber and a 360 degree capsulotomy was performed with a cystitome. The lens was hydrodissected with BSS and rotated freely. The lens was removed with a stop and chop technique. A 4.13 phaco CDE was used to remove the lens. Residual buffy ex was removed with the irrigation and aspiration. Provisc was placed in the capsular bag. A [id number] , +22.5 at 98 degrees lens was placed in the capsular bag without complications. Irrigation and aspi ration was used to remove residual viscoelastic. The paracentesis sites were hydrated with BSS. The wound and paracentesis sites were inspected and found to be watertight. Vigamox 0.07 cc was placed intracamerally at the end of the procedure. The eye was irrigated with balanced salt solution. The eye was patched with a soft cotton patch and Casey metal shield. The patient was returned to day surgery in good condition. Comments: Akten was placed in the eye in Day Surgery and irrigated out of the eye with BSS in the OR . Preservative-free 1% lidocaine was placed in the anterior chamber prior to Viscoat. Discharge Instructions: Ms. Wallace is discharged to home in good condition. She is to follow up pedro pablo Harvey this afternoon and then in the morning. STEPHANIE/MODL Voice ID: [id number] Report ID: [id number]
== END 2018-11-25 10:05 | disposition home or self-care (01) ==
LOC: OR 07:17
PROVIDERS: ATTEND Ophthalmology Retina Specialist
PROC: 08RK3JZ Replacement of Left Lens with Synthetic Substitute, Percutaneous Approach (ICD-10-PCS; principal; 2018-11-25 09:05)
DX: H25.12 Age-related nuclear cataract, left eye (principal); H52.222 Regular astigmatism, left eye; H40.9 Unspecified glaucoma; H04.123 Dry eye syndrome of bilateral lacrimal glands; I10 Essential (primary) hypertension; F32.9 Major depressive disorder, single episode, unspecified; E66.01 Morbid (severe) obesity due to excess calories; Z68.43 Body mass index [BMI] 50.0-59.9, adult; Z79.899 Other long term (current) drug therapy; Z83.518 Family history of other specified eye disorder; Z83.3 Family history of diabetes mellitus; Z82.49 Family history of ischemic heart disease and other diseases of the circulatory system
CPT/HCPCS: 36415; 84132; 66984; J0171; J2250; J3010; J2001; V2630; V2787